=== PATIENT | female | born 1970 | race Caucasian/White ===

== ENCOUNTER 2016-12-15 18:47 | Emergency (ER) | payer MEDICAID ==
[~2016-12-15] VITALS: Ht 160 cm; Wt 81.0 kg
[~2016-12-15 18:47] MED LIST: BENZ2TAB58 PO; CLON.5 PO; DOCU250C76 PO; ESCI10TA PO; LEVE500T53 PO; LEVO25TA4 PO; OLAN15TA5 PO; VALP250S PO
[2016-12-15] MEDS ORDERED: CLOZ25TA4 PO (18:54)
[2016-12-15] MEDS ORDERED: CLOZ100 PO (18:54)
[2016-12-15] MEDS ORDERED: ATOR40TA28 PO (18:54)
[2016-12-15] MEDS ORDERED: LIDOCAINE HCL 1%/EPI 1:100,000 30 ML VIAL INJ ONE (19:30)
[2016-12-15] MEDS ORDERED: LIDOCAINE HCL 1%/EPI 1:200,000/PF 10 ML VIAL INJ ONE (20:00)
[2016-12-15 20:30] VITALS: BP 124/83
[2016-12-15] MEDS ORDERED: BACITRACIN 0.9 GM PACKET OINTMENT TP ONE (20:45)
== END 2016-12-15 21:39 | disposition home or self-care (01) ==
LOC: EMS 18:49
DX: S01.01XA Laceration without foreign body of scalp, initial encounter (principal); E03.9 Hypothyroidism, unspecified; E78.00 Pure hypercholesterolemia, unspecified; F17.210 Nicotine dependence, cigarettes, uncomplicated; W19.XXXA Unspecified fall, initial encounter; Y93.89 Activity, other specified; Y92.89 Other specified places as the place of occurrence of the external cause; Y99.8 Other external cause status
CPT/HCPCS: 12002; 99283; J3490

== ENCOUNTER 2020-08-09 19:51 | Inpatient (IN) | payer MEDICAID ==
[~2020-08-09] VITALS: Ht 162.6 cm; Wt 65.7 kg
[~2020-08-09 19:51] MED LIST changes: +ATOR40TA28 PO; +CLON-592 PO; -CLON.5 PO; +CLOZ100T32 PO; +CLOZ25TA5 PO; +DOCU250C14 PO; -DOCU250C76 PO; -ESCI10TA PO
[2020-08-09 20:45] LABS: BASOPHILS % (AUTO) 0.4 % (0.0-2.0); EOSINOPHILS % (AUTO) 2.5 % (1.0-6.0); HEMATOCRIT 35.7 % (36-46); HEMOGLOBIN 11.5 g/dL (12.0-16.0); LYMPHOCYTES % (AUTO) 30.6 % (22.0-44.0); MEAN CORPUSCULAR HEMOGLOBIN 28.6 pg (26.0-34.0); MEAN CORPUSCULAR HGB CONC 32.2 G/dL (31.0-37.0); MEAN CORPUSCULAR VOLUME 89 fL (80-100); MONOCYTES # (AUTO) 0.6 K/uL (0.1-1.0); MONOCYTES % (AUTO) 6.6 % (2.0-9.0); NEUTROPHILS # (AUTO) 5.9 K/uL (1.8-7.7); NEUTROPHILS % (AUTO) 59.9 % (40.0-70.0); PLATELET COUNT (AUTO) 271 K/uL (150-450); RED BLOOD CELL COUNT(AUTO) 4.02 MIL/uL (4.00-5.20); RED CELL DISTRIBUTION WIDTH 15.4 % (11.5-14.5)
[2020-08-09] MEDS ORDERED: DiphenhydrAMINE HCL 50 MG/ML VIAL IM ONE (20:45)
[2020-08-09] MEDS ORDERED: HALOPERIDOL LACTATE 5 MG/ML VIAL IM ONE (20:45)
[2020-08-09] MEDS ORDERED: LORazepam 2 MG/ML VIAL IM ONE (20:45)
[2020-08-09 20:51] LABS: GLUCOSE,POINT OF CARE 114 MG/DL (70-110)
[2020-08-09 20:56] LABS: ANION GAP 15 mmol/L (8-16); CALCIUM, TOTAL 9.3 mg/dL (8.8-10.5); CARBON DIOXIDE 21 mmol/L (22-29); CHLORIDE 105 mmol/L (98-107); CREATININE 1.01 mg/dL (0.60-1.30); GLOMERULAR FILTR. RATE CALC 59 mL/min (>60); GLUCOSE,RANDOM 131 mg/dL (70-110); POTASSIUM 3.4 mmol/L (3.5-5.1); SODIUM SERUM 141 mmol/L (136-145); UREA NITROGEN, BLOOD 16 mg/dL (7-18)
[2020-08-09 21:07] LABS: ALANINE AMINOTRANSFERASE 24 U/L (12-78); ALBUMIN 3.7 g/dL (3.4-5.0); ALKALINE PHOSPHATASE 93 U/L (46-116); ASPARTATE AMINOTRANSFERASE 20 U/L (15-37); BILIRUBIN,TOTAL 0.4 mg/dL (0.1-1.0); HCG,QUANTITATIVE 1 mIU/mL (0-6); TOTAL PROTEIN, SERUM 7.1 g/dL (6.4-8.2)
[2020-08-09 21:43] LABS: CREATINE KINASE, TOTAL ONLY 342 U/L (26-192)
[2020-08-09 22:42] LABS: COVID AG,FIA SOURCE NASOPHARYNGEAL
[2020-08-09 23:14] LABS: VALPROIC ACID < 3 mcg/mL (50-100)
[2020-08-10] MEDS ORDERED: ONDANSETRON HCL 4 MG TABLET PO PRN (09:00)
[2020-08-10] MEDS ORDERED: NICOTINE 14 MG/24 HOUR PATCH TD PRN (09:00)
[2020-08-10] MEDS ORDERED: MAG HYDROX/AL HYDROX/SIMETH ES 30 ML SUSPENSION UDCUP PO PRN (09:00)
[2020-08-10] MEDS ORDERED: ACETAMINOPHEN 325 MG TABLET PO PRN (09:00)
[2020-08-10] MEDS ORDERED: MAGNESIUM HYDROXIDE SUSPENSION 30 ML UDCUP PO PRN (09:00)
[2020-08-10] MEDS ORDERED: ALBUTEROL SULFATE HFA 90 MCG/PUFF 8 GM INHALER IH PRN (09:00)
[2020-08-10] MEDS ORDERED: IBUPROFEN 400 MG TABLET PO PRN (09:00)
[2020-08-10] MEDS ORDERED: PETROLATUM,WHITE 28 GM JELLY TP PRN (09:00)
[2020-08-10] MEDS ORDERED: LOPERAMIDE HCL 2 MG CAPSULE PO PRN (09:00)
[2020-08-10] MEDS ORDERED: GuaiFENesin/D-METHORPHAN [SUGAR-FREE] 200-20MG/10 ML SYRUP UDCUP PO PRN (09:00)
[2020-08-10] MEDS ORDERED: CloNIDine HCL 0.1 MG TABLET PO PRN (09:00)
[2020-08-10] MEDS: LevETIRAcetam 500 MG TABLET PO SCH ×2 (10:16→21:00)
[2020-08-10] MEDS: DOCUSATE SODIUM 250 MG CAPSULE PO SCH ×3 (10:16→17:11)
[2020-08-10 12:36] VITALS: BP 98/70
[2020-08-10] MEDS: DOCUSATE SODIUM 100 MG CAPSULE PO PRN ×2 (13:11→17:04)
[2020-08-10 16:30] VITALS: BP 134/88
[2020-08-10] MEDS: BACITRACIN 28 GM OINTMENT TP SCH (17:04)
[2020-08-10] MEDS: ATORVASTATIN CALCIUM 40 MG TABLET PO SCH (21:00)
[2020-08-11 06:26] VITALS: BP 126/73
[2020-08-11] MEDS: LEVOTHYROXINE SODIUM 100 MCG TABLET PO SCH (06:29)
[2020-08-11 07:50] LABS: CHOL/HDL RATIO 3.4 (3.9-5.7)
[2020-08-11 08:07] VITALS: BP 104/61
[2020-08-11] MEDS: DOCUSATE SODIUM 250 MG CAPSULE PO SCH ×3 (08:36→16:04)
[2020-08-11] MEDS: LevETIRAcetam 500 MG TABLET PO SCH ×2 (08:36→20:45)
[2020-08-11] MEDS: OLANZapine 5 MG TABLET PO SCH ×2 (08:36→16:04)
[2020-08-11] MEDS: BACITRACIN 28 GM OINTMENT TP SCH ×2 (08:42→16:06)
[2020-08-11 16:23] VITALS: BP 149/60
[2020-08-11] MEDS: ATORVASTATIN CALCIUM 40 MG TABLET PO SCH (20:45)
[2020-08-12] MEDS: LEVOTHYROXINE SODIUM 100 MCG TABLET PO SCH (06:02)
[2020-08-12 06:41] VITALS: BP 133/75
[2020-08-12] MEDS: OLANZapine 5 MG TABLET PO SCH (08:17)
[2020-08-12] MEDS: LORazepam 2 MG TABLET PO PRN ×2 (08:17→13:22)
[2020-08-12] MEDS: DOCUSATE SODIUM 250 MG CAPSULE PO SCH ×3 (08:17→16:31)
[2020-08-12] MEDS: LevETIRAcetam 500 MG TABLET PO SCH ×2 (08:17→20:36)
[2020-08-12 08:18] VITALS: BP 117/67
[2020-08-12] MEDS: BACITRACIN 28 GM OINTMENT TP SCH ×2 (08:18→16:31)
[2020-08-12] MEDS: HALOPERIDOL 5 MG TABLET PO PRN (10:00)
[2020-08-12 16:05] VITALS: BP 112/76
[2020-08-12] MEDS: OLANZapine 10 MG TABLET PO SCH (16:31)
[2020-08-12] MEDS: ATORVASTATIN CALCIUM 40 MG TABLET PO SCH (20:36)
[2020-08-13] MEDS: HALOPERIDOL 5 MG TABLET PO PRN ×2 (03:44→08:35)
[2020-08-13] MEDS: LORazepam 2 MG TABLET PO PRN (03:44)
[2020-08-13 05:33] VITALS: BP 109/71
[2020-08-13] MEDS: LEVOTHYROXINE SODIUM 100 MCG TABLET PO SCH (06:38)
[2020-08-13 08:34] VITALS: BP 121/70
[2020-08-13] MEDS: DOCUSATE SODIUM 100 MG CAPSULE PO PRN (08:34)
[2020-08-13] MEDS: OLANZapine 10 MG TABLET PO SCH ×2 (08:34→16:32)
[2020-08-13] MEDS: LevETIRAcetam 500 MG TABLET PO SCH ×2 (08:35→20:28)
[2020-08-13] MEDS: BACITRACIN 28 GM OINTMENT TP SCH ×2 (08:36→16:36)
[2020-08-13] MEDS: DOCUSATE SODIUM 250 MG CAPSULE PO SCH ×3 (10:00→16:35)
[2020-08-13 16:09] VITALS: BP 117/72
[2020-08-13] MEDS: ATORVASTATIN CALCIUM 40 MG TABLET PO SCH (20:28)
[2020-08-14] MEDS: ZOLPIDEM TARTRATE 10 MG TABLET PO PRN (00:41)
[2020-08-14] MEDS: LORazepam 2 MG TABLET PO PRN ×2 (00:41→08:49)
[2020-08-14 01:53] VITALS: BP 105/62
[2020-08-14] MEDS: LEVOTHYROXINE SODIUM 100 MCG TABLET PO SCH (06:26)
[2020-08-14 07:04] LABS: COVID AG,FIA SOURCE NASOPHARYNGEAL
[2020-08-14 08:09] VITALS: BP 123/74
[2020-08-14] MEDS: LevETIRAcetam 500 MG TABLET PO SCH ×2 (08:38→20:34)
[2020-08-14] MEDS: DOCUSATE SODIUM 250 MG CAPSULE PO SCH ×3 (08:39→17:10)
[2020-08-14] MEDS: HALOPERIDOL 5 MG TABLET PO PRN ×2 (08:39→12:43)
[2020-08-14] MEDS: OLANZapine 10 MG TABLET PO SCH (08:39)
[2020-08-14] MEDS: BACITRACIN 28 GM OINTMENT TP SCH ×2 (09:34→17:10)
[2020-08-14 16:09] VITALS: BP 101/68
[2020-08-14] MEDS: OLANZapine 7.5 MG TABLET PO SCH (17:10)
[2020-08-14] MEDS: ATORVASTATIN CALCIUM 40 MG TABLET PO SCH (20:34)
[2020-08-15] VITALS: BP 81/51
[2020-08-15] MEDS: LEVOTHYROXINE SODIUM 100 MCG TABLET PO SCH (06:15)
[2020-08-15] MEDS: OLANZapine 7.5 MG TABLET PO SCH ×2 (08:18→16:41)
[2020-08-15] MEDS: DOCUSATE SODIUM 250 MG CAPSULE PO SCH ×3 (08:18→16:41)
[2020-08-15] MEDS: LevETIRAcetam 500 MG TABLET PO SCH ×2 (08:18→20:33)
[2020-08-15] MEDS: LORazepam 2 MG TABLET PO PRN (08:18)
[2020-08-15] MEDS: BACITRACIN 28 GM OINTMENT TP SCH ×2 (08:19→16:41)
[2020-08-15 08:39] VITALS: BP 100/60
[2020-08-15 16:19] VITALS: BP 106/71
[2020-08-15] MEDS: ATORVASTATIN CALCIUM 40 MG TABLET PO SCH (20:33)
[2020-08-16 00:19] VITALS: BP 110/72
[2020-08-16] MEDS: LORazepam 2 MG TABLET PO PRN (02:56)
[2020-08-16] MEDS: ZOLPIDEM TARTRATE 10 MG TABLET PO PRN (02:57)
[2020-08-16] MEDS: LEVOTHYROXINE SODIUM 100 MCG TABLET PO SCH (06:30)
[2020-08-16 08:08] VITALS: BP 117/66
[2020-08-16] MEDS: DOCUSATE SODIUM 250 MG CAPSULE PO SCH ×3 (09:06→16:20)
[2020-08-16] MEDS: OLANZapine 7.5 MG TABLET PO SCH ×2 (09:06→16:20)
[2020-08-16] MEDS: LevETIRAcetam 500 MG TABLET PO SCH ×2 (09:06→20:25)
[2020-08-16] MEDS: BACITRACIN 28 GM OINTMENT TP SCH ×2 (09:07→17:05)
[2020-08-16] MEDS: BuPROPion HCL XL 150 MG ER TABLET PO SCH (11:53)
[2020-08-16] MEDS: MULTIVITAMINS WITH MINERALS, THERAPEUTIC TABLET PO SCH (12:05)
[2020-08-16 16:16] VITALS: BP 114/71
[2020-08-16] MEDS: ATORVASTATIN CALCIUM 40 MG TABLET PO SCH (20:25)
[2020-08-17 00:11] VITALS: BP 112/68
[2020-08-17] MEDS: LEVOTHYROXINE SODIUM 100 MCG TABLET PO SCH (06:46)
[2020-08-17 08:11] VITALS: BP 109/67
[2020-08-17] MEDS: LevETIRAcetam 500 MG TABLET PO SCH ×2 (08:26→20:33)
[2020-08-17] MEDS: DOCUSATE SODIUM 250 MG CAPSULE PO SCH ×3 (08:26→18:26)
[2020-08-17] MEDS: BuPROPion HCL XL 150 MG ER TABLET PO SCH (08:26)
[2020-08-17] MEDS: MULTIVITAMINS WITH MINERALS, THERAPEUTIC TABLET PO SCH (08:26)
[2020-08-17] MEDS: OLANZapine 7.5 MG TABLET PO SCH ×2 (08:26→16:36)
[2020-08-17] MEDS: BACITRACIN 28 GM OINTMENT TP SCH ×2 (10:22→16:36)
[2020-08-17] MEDS: HALOPERIDOL 5 MG TABLET PO PRN (11:53)
[2020-08-17] MEDS: LORazepam 2 MG TABLET PO PRN (12:03)
[2020-08-17 16:21] VITALS: BP 110/60
[2020-08-17] MEDS: DOCUSATE SODIUM 100 MG CAPSULE PO PRN (16:36)
[2020-08-17] MEDS: ATORVASTATIN CALCIUM 40 MG TABLET PO SCH ×2 (20:31→20:33)
[2020-08-18 05:01] VITALS: BP 100/51
[2020-08-18] MEDS: LEVOTHYROXINE SODIUM 100 MCG TABLET PO SCH (06:26)
[2020-08-18 08:49] VITALS: BP 139/76
[2020-08-18] MEDS: LevETIRAcetam 500 MG TABLET PO SCH ×2 (08:51→20:30)
[2020-08-18] MEDS: OLANZapine 7.5 MG TABLET PO SCH ×2 (08:51→16:53)
[2020-08-18] MEDS: DOCUSATE SODIUM 250 MG CAPSULE PO SCH ×3 (08:51→16:53)
[2020-08-18] MEDS: BuPROPion HCL XL 150 MG ER TABLET PO SCH (08:51)
[2020-08-18] MEDS: MULTIVITAMINS WITH MINERALS, THERAPEUTIC TABLET PO SCH (08:51)
[2020-08-18] MEDS: BACITRACIN 28 GM OINTMENT TP SCH ×2 (08:53→16:53)
[2020-08-18 16:16] VITALS: BP 103/68
[2020-08-18] MEDS: ATORVASTATIN CALCIUM 40 MG TABLET PO SCH (20:30)
[2020-08-19 06:09] VITALS: BP 103/61
[2020-08-19] MEDS: LEVOTHYROXINE SODIUM 100 MCG TABLET PO SCH (06:48)
[2020-08-19 08:00] VITALS: BP 100/57
[2020-08-19] MEDS: LevETIRAcetam 500 MG TABLET PO SCH ×2 (09:01→20:11)
[2020-08-19] MEDS: BuPROPion HCL XL 150 MG ER TABLET PO SCH (09:01)
[2020-08-19] MEDS: DOCUSATE SODIUM 250 MG CAPSULE PO SCH ×3 (09:01→16:45)
[2020-08-19] MEDS: OLANZapine 7.5 MG TABLET PO SCH ×2 (09:01→16:45)
[2020-08-19] MEDS: MULTIVITAMINS WITH MINERALS, THERAPEUTIC TABLET PO SCH (09:01)
[2020-08-19] MEDS: BACITRACIN 28 GM OINTMENT TP SCH ×2 (09:03→17:07)
[2020-08-19] MEDS: HALOPERIDOL 5 MG TABLET PO PRN ×2 (11:56→16:45)
[2020-08-19] MEDS: LORazepam 2 MG TABLET PO PRN ×2 (11:56→16:45)
[2020-08-19 16:22] VITALS: BP 101/66
[2020-08-19] MEDS: ATORVASTATIN CALCIUM 40 MG TABLET PO SCH (20:11)
[2020-08-20 05:39] VITALS: BP 113/65
[2020-08-20] MEDS: LEVOTHYROXINE SODIUM 100 MCG TABLET PO SCH (06:18)
[2020-08-20 08:00] VITALS: BP 102/72
[2020-08-20] MEDS: BuPROPion HCL XL 150 MG ER TABLET PO SCH (09:13)
[2020-08-20] MEDS: OLANZapine 7.5 MG TABLET PO SCH ×2 (09:13→16:29)
[2020-08-20] MEDS: LevETIRAcetam 500 MG TABLET PO SCH ×2 (09:13→20:18)
[2020-08-20] MEDS: DOCUSATE SODIUM 250 MG CAPSULE PO SCH ×3 (09:13→16:29)
[2020-08-20] MEDS: MULTIVITAMINS WITH MINERALS, THERAPEUTIC TABLET PO SCH (09:13)
[2020-08-20] MEDS: BACITRACIN 28 GM OINTMENT TP SCH (09:14)
[2020-08-20] MEDS: LORazepam 2 MG TABLET PO PRN ×2 (09:20→16:29)
[2020-08-20] MEDS: HALOPERIDOL 5 MG TABLET PO PRN (10:27)
[2020-08-20 16:27] VITALS: BP 114/74
[2020-08-20] MEDS: ATORVASTATIN CALCIUM 40 MG TABLET PO SCH (20:18)
[2020-08-20] MEDS: ZOLPIDEM TARTRATE 10 MG TABLET PO PRN (20:18)
[2020-08-21] MEDS: LEVOTHYROXINE SODIUM 100 MCG TABLET PO SCH (06:12)
[2020-08-21 06:45] VITALS: BP 101/65
[2020-08-21 07:19] LABS: COVID AG,FIA SOURCE NASOPHARYNGEAL
[2020-08-21 08:21] VITALS: BP 111/77
[2020-08-21] MEDS: BuPROPion HCL XL 150 MG ER TABLET PO SCH (08:30)
[2020-08-21] MEDS: OLANZapine 7.5 MG TABLET PO SCH ×2 (08:30→16:35)
[2020-08-21] MEDS: LevETIRAcetam 500 MG TABLET PO SCH ×2 (08:30→20:24)
[2020-08-21] MEDS: MULTIVITAMINS WITH MINERALS, THERAPEUTIC TABLET PO SCH (08:30)
[2020-08-21] MEDS: HALOPERIDOL 5 MG TABLET PO PRN (08:30)
[2020-08-21] MEDS: DOCUSATE SODIUM 250 MG CAPSULE PO SCH ×3 (08:59→16:35)
[2020-08-21 16:10] VITALS: BP 103/70
[2020-08-21] MEDS: LORazepam 2 MG TABLET PO PRN (16:35)
[2020-08-21] MEDS: ATORVASTATIN CALCIUM 40 MG TABLET PO SCH (20:24)
[2020-08-22 06:23] VITALS: BP 126/74
[2020-08-22] MEDS: LEVOTHYROXINE SODIUM 100 MCG TABLET PO SCH (06:29)
[2020-08-22 08:40] VITALS: BP 131/84
[2020-08-22] MEDS: OLANZapine 7.5 MG TABLET PO SCH ×2 (09:28→16:21)
[2020-08-22] MEDS: MULTIVITAMINS WITH MINERALS, THERAPEUTIC TABLET PO SCH (09:28)
[2020-08-22] MEDS: DOCUSATE SODIUM 250 MG CAPSULE PO SCH ×3 (09:28→16:21)
[2020-08-22] MEDS: LevETIRAcetam 500 MG TABLET PO SCH ×2 (09:28→20:44)
[2020-08-22] MEDS: BuPROPion HCL XL 150 MG ER TABLET PO SCH (09:28)
[2020-08-22] MEDS: LORazepam 2 MG TABLET PO PRN (12:14)
[2020-08-22] MEDS: HALOPERIDOL 5 MG TABLET PO PRN (12:14)
[2020-08-22 16:23] VITALS: BP 98/61
[2020-08-22] MEDS: ATORVASTATIN CALCIUM 40 MG TABLET PO SCH (20:44)
[2020-08-23 06:21] VITALS: BP 106/73
[2020-08-23] MEDS: LEVOTHYROXINE SODIUM 100 MCG TABLET PO SCH (06:43)
[2020-08-23] MEDS: BuPROPion HCL XL 150 MG ER TABLET PO SCH (08:46)
[2020-08-23] MEDS: MULTIVITAMINS WITH MINERALS, THERAPEUTIC TABLET PO SCH (08:46)
[2020-08-23] MEDS: DOCUSATE SODIUM 250 MG CAPSULE PO SCH ×3 (08:47→15:28)
[2020-08-23] MEDS: LevETIRAcetam 500 MG TABLET PO SCH ×2 (08:47→20:27)
[2020-08-23] MEDS: OLANZapine 7.5 MG TABLET PO SCH ×2 (08:47→15:29)
[2020-08-23 08:50] VITALS: BP 110/69
[2020-08-23] MEDS: HALOPERIDOL 5 MG TABLET PO PRN ×2 (10:01→15:28)
[2020-08-23] MEDS: LORazepam 2 MG TABLET PO PRN ×3 (10:02→21:15)
[2020-08-23 16:23] VITALS: BP 117/70
[2020-08-23] MEDS: ATORVASTATIN CALCIUM 40 MG TABLET PO SCH (20:27)
[2020-08-24 01:01] VITALS: BP 103/62
[2020-08-24] MEDS: LEVOTHYROXINE SODIUM 100 MCG TABLET PO SCH (06:54)
[2020-08-24] MEDS: LevETIRAcetam 500 MG TABLET PO SCH ×2 (08:36→20:20)
[2020-08-24] MEDS: BuPROPion HCL XL 150 MG ER TABLET PO SCH (08:36)
[2020-08-24] MEDS: MULTIVITAMINS WITH MINERALS, THERAPEUTIC TABLET PO SCH (08:36)
[2020-08-24] MEDS: OLANZapine 7.5 MG TABLET PO SCH ×2 (08:36→16:16)
[2020-08-24] MEDS: DOCUSATE SODIUM 250 MG CAPSULE PO SCH ×3 (08:36→16:16)
[2020-08-24] MEDS: HALOPERIDOL 5 MG TABLET PO PRN ×2 (08:57→16:16)
[2020-08-24 09:15] VITALS: BP 104/68
[2020-08-24] MEDS: LORazepam 2 MG TABLET PO PRN (16:19)
[2020-08-24 16:29] VITALS: BP 106/68
[2020-08-24] MEDS: ATORVASTATIN CALCIUM 40 MG TABLET PO SCH (20:20)
[2020-08-25 05:58] VITALS: BP 102/68
[2020-08-25] MEDS: LEVOTHYROXINE SODIUM 100 MCG TABLET PO SCH (06:23)
[2020-08-25] MEDS: DOCUSATE SODIUM 250 MG CAPSULE PO SCH ×3 (09:30→16:26)
[2020-08-25] MEDS: OLANZapine 7.5 MG TABLET PO SCH ×2 (09:30→16:26)
[2020-08-25] MEDS: LevETIRAcetam 500 MG TABLET PO SCH ×2 (09:30→20:29)
[2020-08-25] MEDS: MULTIVITAMINS WITH MINERALS, THERAPEUTIC TABLET PO SCH (09:30)
[2020-08-25] MEDS: BuPROPion HCL XL 150 MG ER TABLET PO SCH (09:30)
[2020-08-25 09:36] VITALS: BP 108/70
[2020-08-25 16:13] VITALS: BP 119/64
[2020-08-25] MEDS: HALOPERIDOL 5 MG TABLET PO PRN ×2 (16:26→16:34)
[2020-08-25] MEDS: ATORVASTATIN CALCIUM 40 MG TABLET PO SCH (20:29)
[2020-08-25] MEDS: LORazepam 2 MG TABLET PO PRN (20:39)
[2020-08-26 06:11] VITALS: BP 100/61
[2020-08-26] MEDS: LEVOTHYROXINE SODIUM 100 MCG TABLET PO SCH (06:25)
[2020-08-26 07:56] LABS: COVID AG,FIA SOURCE NASOPHARYNGEAL
[2020-08-26] MEDS: MULTIVITAMINS WITH MINERALS, THERAPEUTIC TABLET PO SCH (08:15)
[2020-08-26] MEDS: LORazepam 2 MG TABLET PO PRN (08:16)
[2020-08-26] MEDS: BuPROPion HCL XL 150 MG ER TABLET PO SCH (08:16)
[2020-08-26] MEDS: OLANZapine 7.5 MG TABLET PO SCH ×2 (08:16→17:03)
[2020-08-26] MEDS: DOCUSATE SODIUM 100 MG CAPSULE PO PRN ×3 (08:16→17:03)
[2020-08-26 09:02] VITALS: BP 106/55
[2020-08-26] MEDS: LevETIRAcetam 500 MG TABLET PO SCH ×2 (09:19→20:22)
[2020-08-26] MEDS: DOCUSATE SODIUM 250 MG CAPSULE PO SCH ×3 (09:20→17:00)
[2020-08-26 16:22] VITALS: BP 101/75
[2020-08-26] MEDS: ATORVASTATIN CALCIUM 40 MG TABLET PO SCH (20:22)
[2020-08-27 00:35] VITALS: BP 105/66
[2020-08-27] MEDS: LEVOTHYROXINE SODIUM 100 MCG TABLET PO SCH (06:46)
[2020-08-27] MEDS: LORazepam 2 MG TABLET PO PRN ×2 (08:31→16:06)
[2020-08-27] MEDS: DOCUSATE SODIUM 250 MG CAPSULE PO SCH ×3 (08:31→16:06)
[2020-08-27] MEDS: OLANZapine 7.5 MG TABLET PO SCH ×2 (08:31→16:06)
[2020-08-27] MEDS: BuPROPion HCL XL 150 MG ER TABLET PO SCH (08:31)
[2020-08-27] MEDS: MULTIVITAMINS WITH MINERALS, THERAPEUTIC TABLET PO SCH (08:31)
[2020-08-27] MEDS: HALOPERIDOL 5 MG TABLET PO PRN (08:31)
[2020-08-27] MEDS: LevETIRAcetam 500 MG TABLET PO SCH ×2 (08:31→21:49)
[2020-08-27 09:04] VITALS: BP 117/80
[2020-08-27] MEDS ORDERED: HALOPERIDOL LACTATE 5 MG/ML VIAL IM ONE (10:15)
[2020-08-27] MEDS ORDERED: LORazepam 2 MG/ML VIAL IM ONE (10:15)
[2020-08-27] MEDS ORDERED: DiphenhydrAMINE HCL 50 MG/ML VIAL IM ONE (10:15)
[2020-08-27 12:53] VITALS: BP 110/70
[2020-08-27 16:11] LABS: GLUCOMETER DEV NAME(LOC) BV2S.; GLUCOSE,POINT OF CARE 105 MG/DL (70-110)
[2020-08-27 16:26] VITALS: BP 102/67
[2020-08-27] MEDS: ATORVASTATIN CALCIUM 40 MG TABLET PO SCH (21:49)
[2020-08-28 00:30] VITALS: BP 110/75
[2020-08-28] MEDS: LEVOTHYROXINE SODIUM 100 MCG TABLET PO SCH (06:52)
[2020-08-28 08:26] VITALS: BP 108/69
[2020-08-28] MEDS: LevETIRAcetam 500 MG TABLET PO SCH ×2 (08:29→20:35)
[2020-08-28] MEDS: BuPROPion HCL XL 150 MG ER TABLET PO SCH (08:29)
[2020-08-28] MEDS: DOCUSATE SODIUM 100 MG CAPSULE PO PRN (08:29)
[2020-08-28] MEDS: OLANZapine 7.5 MG TABLET PO SCH ×2 (08:29→08:31)
[2020-08-28] MEDS: MULTIVITAMINS WITH MINERALS, THERAPEUTIC TABLET PO SCH (08:29)
[2020-08-28] MEDS: DOCUSATE SODIUM 250 MG CAPSULE PO SCH (08:31)
[2020-08-28] MEDS: HALOPERIDOL 5 MG TABLET PO PRN (12:46)
[2020-08-28] MEDS: LORazepam 2 MG TABLET PO PRN (12:46)
[2020-08-28 16:29] VITALS: BP 101/61
[2020-08-28] MEDS: ATORVASTATIN CALCIUM 40 MG TABLET PO SCH (20:35)
[2020-08-29 01:55] VITALS: BP 103/60
[2020-08-29] MEDS: LORazepam 2 MG TABLET PO PRN ×2 (02:00→08:47)
[2020-08-29] MEDS: HALOPERIDOL 5 MG TABLET PO PRN (02:00)
[2020-08-29] MEDS: LEVOTHYROXINE SODIUM 100 MCG TABLET PO SCH (06:22)
[2020-08-29] MEDS: LevETIRAcetam 500 MG TABLET PO SCH ×2 (08:47→20:08)
[2020-08-29] MEDS: MULTIVITAMINS WITH MINERALS, THERAPEUTIC TABLET PO SCH (08:47)
[2020-08-29] MEDS: BuPROPion HCL XL 150 MG ER TABLET PO SCH (08:47)
[2020-08-29] MEDS: OLANZapine 7.5 MG TABLET PO SCH ×2 (08:47→17:13)
[2020-08-29 09:33] VITALS: BP 104/70
[2020-08-29 16:21] VITALS: BP 102/64
[2020-08-29] MEDS: ATORVASTATIN CALCIUM 40 MG TABLET PO SCH (20:08)
[2020-08-30] MEDS: HALOPERIDOL 5 MG TABLET PO PRN (00:08)
[2020-08-30] MEDS: LORazepam 2 MG TABLET PO PRN ×2 (00:08→15:09)
[2020-08-30 00:46] VITALS: BP 103/62
[2020-08-30] MEDS: LEVOTHYROXINE SODIUM 100 MCG TABLET PO SCH (06:23)
[2020-08-30 08:15] VITALS: BP 110/61
[2020-08-30] MEDS: LevETIRAcetam 500 MG TABLET PO SCH ×2 (08:21→20:34)
[2020-08-30] MEDS: MULTIVITAMINS WITH MINERALS, THERAPEUTIC TABLET PO SCH (08:21)
[2020-08-30] MEDS: OLANZapine 7.5 MG TABLET PO SCH ×2 (08:21→16:42)
[2020-08-30] MEDS: BuPROPion HCL XL 150 MG ER TABLET PO SCH (08:21)
[2020-08-30 16:24] VITALS: BP 114/64
[2020-08-30] MEDS: ATORVASTATIN CALCIUM 40 MG TABLET PO SCH (20:34)
[2020-08-31] MEDS: LEVOTHYROXINE SODIUM 100 MCG TABLET PO SCH (06:21)
[2020-08-31 06:23] VITALS: BP 103/62
[2020-08-31 08:13] VITALS: BP 114/78
[2020-08-31] MEDS: OLANZapine 7.5 MG TABLET PO SCH ×2 (09:17→16:29)
[2020-08-31] MEDS: BuPROPion HCL XL 150 MG ER TABLET PO SCH (09:17)
[2020-08-31] MEDS: LevETIRAcetam 500 MG TABLET PO SCH ×2 (09:17→20:22)
[2020-08-31] MEDS: LORazepam 2 MG TABLET PO PRN (09:18)
[2020-08-31] MEDS: HALOPERIDOL 5 MG TABLET PO PRN (09:18)
[2020-08-31] MEDS: MULTIVITAMINS WITH MINERALS, THERAPEUTIC TABLET PO SCH (09:18)
[2020-08-31 16:30] VITALS: BP 100/61
[2020-08-31] MEDS: ATORVASTATIN CALCIUM 40 MG TABLET PO SCH (20:22)
[2020-09-01 05:19] VITALS: BP 95/60
[2020-09-01] MEDS: LEVOTHYROXINE SODIUM 100 MCG TABLET PO SCH (06:22)
[2020-09-01 08:34] VITALS: BP 106/65
[2020-09-01] MEDS: LORazepam 2 MG TABLET PO PRN ×3 (08:54→20:19)
[2020-09-01] MEDS: MULTIVITAMINS WITH MINERALS, THERAPEUTIC TABLET PO SCH (08:54)
[2020-09-01] MEDS: BuPROPion HCL XL 150 MG ER TABLET PO SCH (08:54)
[2020-09-01] MEDS: LevETIRAcetam 500 MG TABLET PO SCH ×2 (08:54→20:19)
[2020-09-01] MEDS: OLANZapine 7.5 MG TABLET PO SCH ×2 (08:54→16:48)
[2020-09-01] MEDS: HALOPERIDOL 5 MG TABLET PO PRN (10:53)
[2020-09-01 16:14] VITALS: BP 108/66
[2020-09-01] MEDS: ATORVASTATIN CALCIUM 40 MG TABLET PO SCH (20:19)
[2020-09-02 00:27] VITALS: BP 110/77
[2020-09-02] MEDS: LORazepam 2 MG TABLET PO PRN ×3 (00:27→16:35)
[2020-09-02] MEDS: HALOPERIDOL 5 MG TABLET PO PRN ×2 (00:27→06:40)
[2020-09-02] MEDS: LEVOTHYROXINE SODIUM 100 MCG TABLET PO SCH (06:28)
[2020-09-02 08:25] VITALS: BP 101/66
[2020-09-02] MEDS: MULTIVITAMINS WITH MINERALS, THERAPEUTIC TABLET PO SCH (09:22)
[2020-09-02] MEDS: OLANZapine 7.5 MG TABLET PO SCH ×2 (09:22→16:35)
[2020-09-02] MEDS: LevETIRAcetam 500 MG TABLET PO SCH ×2 (09:22→20:09)
[2020-09-02] MEDS: BuPROPion HCL XL 150 MG ER TABLET PO SCH (09:22)
[2020-09-02 16:12] VITALS: BP 119/72
[2020-09-02] MEDS: ATORVASTATIN CALCIUM 40 MG TABLET PO SCH (20:09)
[2020-09-03 05:48] VITALS: BP 100/57
[2020-09-03] MEDS: LEVOTHYROXINE SODIUM 100 MCG TABLET PO SCH (06:23)
[2020-09-03 08:06] LABS: COVID AG,FIA SOURCE NASOPHARYNGEAL
[2020-09-03] MEDS: MULTIVITAMINS WITH MINERALS, THERAPEUTIC TABLET PO SCH (08:28)
[2020-09-03] MEDS: LORazepam 2 MG TABLET PO PRN ×2 (08:28→14:25)
[2020-09-03] MEDS: BuPROPion HCL XL 150 MG ER TABLET PO SCH (08:28)
[2020-09-03] MEDS: OLANZapine 7.5 MG TABLET PO SCH ×2 (08:28→16:10)
[2020-09-03] MEDS: LevETIRAcetam 500 MG TABLET PO SCH ×2 (09:10→20:26)
[2020-09-03 09:21] VITALS: BP 108/64
[2020-09-03] MEDS: HALOPERIDOL 5 MG TABLET PO PRN (16:15)
[2020-09-03 16:29] VITALS: BP 112/68
[2020-09-03] MEDS: ATORVASTATIN CALCIUM 40 MG TABLET PO SCH (20:25)
[2020-09-04] MEDS: LORazepam 2 MG TABLET PO PRN ×4 (01:18→21:29)
[2020-09-04] MEDS: HALOPERIDOL 5 MG TABLET PO PRN ×4 (01:19→21:29)
[2020-09-04 04:43] VITALS: BP 116/65
[2020-09-04] MEDS: LEVOTHYROXINE SODIUM 100 MCG TABLET PO SCH (06:23)
[2020-09-04 08:16] VITALS: BP 100/60
[2020-09-04] MEDS: BuPROPion HCL XL 150 MG ER TABLET PO SCH (09:26)
[2020-09-04] MEDS: LevETIRAcetam 500 MG TABLET PO SCH ×2 (09:26→20:18)
[2020-09-04] MEDS: MULTIVITAMINS WITH MINERALS, THERAPEUTIC TABLET PO SCH (09:26)
[2020-09-04] MEDS: OLANZapine 7.5 MG TABLET PO SCH ×2 (09:27→16:12)
[2020-09-04] MEDS: MEGESTROL ACETATE 400 MG/10 ML SUSPENSION UDCUP PO SCH (16:11)
[2020-09-04 16:34] VITALS: BP 112/65
[2020-09-04] MEDS: ATORVASTATIN CALCIUM 40 MG TABLET PO SCH (20:18)
[2020-09-05 04:48] VITALS: BP 110/63
[2020-09-05] MEDS: LEVOTHYROXINE SODIUM 100 MCG TABLET PO SCH (06:44)
[2020-09-05 07:35] LABS: MAGNESIUM 1.8 mg/dL (1.80-2.40); PHOSPHORUS 4.1 mg/dL (2.5-4.9); POTASSIUM 3.9 mmol/L (3.5-5.1)
[2020-09-05 08:11] VITALS: BP 105/67
[2020-09-05] MEDS: BuPROPion HCL XL 150 MG ER TABLET PO SCH (08:58)
[2020-09-05] MEDS: MULTIVITAMINS WITH MINERALS, THERAPEUTIC TABLET PO SCH (08:58)
[2020-09-05] MEDS: OLANZapine 7.5 MG TABLET PO SCH ×2 (08:58→15:38)
[2020-09-05] MEDS: LevETIRAcetam 500 MG TABLET PO SCH ×2 (08:58→19:50)
[2020-09-05] MEDS: MEGESTROL ACETATE 400 MG/10 ML SUSPENSION UDCUP PO SCH ×2 (08:58→16:08)
[2020-09-05] MEDS: LORazepam 2 MG TABLET PO PRN (09:41)
[2020-09-05] MEDS: HALOPERIDOL 5 MG TABLET PO PRN ×2 (09:41→15:38)
[2020-09-05 16:09] VITALS: BP 107/61
[2020-09-05] MEDS: ATORVASTATIN CALCIUM 40 MG TABLET PO SCH (19:50)
[2020-09-06 00:39] VITALS: BP 102/54
[2020-09-06] MEDS: LEVOTHYROXINE SODIUM 100 MCG TABLET PO SCH (06:24)
[2020-09-06 08:15] VITALS: BP 100/84
[2020-09-06] MEDS: LevETIRAcetam 500 MG TABLET PO SCH ×2 (08:44→20:25)
[2020-09-06] MEDS: MULTIVITAMINS WITH MINERALS, THERAPEUTIC TABLET PO SCH (08:44)
[2020-09-06] MEDS: OLANZapine 7.5 MG TABLET PO SCH ×2 (08:44→16:04)
[2020-09-06] MEDS: BuPROPion HCL XL 150 MG ER TABLET PO SCH (08:44)
[2020-09-06] MEDS: MEGESTROL ACETATE 400 MG/10 ML SUSPENSION UDCUP PO SCH ×2 (08:45→16:04)
[2020-09-06] MEDS: LORazepam 2 MG TABLET PO PRN (13:15)
[2020-09-06 16:09] VITALS: BP 115/83
[2020-09-06] MEDS: ATORVASTATIN CALCIUM 40 MG TABLET PO SCH (20:25)
[2020-09-07 00:16] VITALS: BP 110/65
[2020-09-07] MEDS: LEVOTHYROXINE SODIUM 100 MCG TABLET PO SCH (06:28)
[2020-09-07 08:25] VITALS: BP 127/83
[2020-09-07] MEDS: LevETIRAcetam 500 MG TABLET PO SCH ×2 (08:28→20:19)
[2020-09-07] MEDS: BuPROPion HCL XL 150 MG ER TABLET PO SCH (08:28)
[2020-09-07] MEDS: OLANZapine 7.5 MG TABLET PO SCH ×2 (08:28→16:43)
[2020-09-07] MEDS: MULTIVITAMINS WITH MINERALS, THERAPEUTIC TABLET PO SCH (08:28)
[2020-09-07] MEDS: MEGESTROL ACETATE 400 MG/10 ML SUSPENSION UDCUP PO SCH ×2 (08:29→16:43)
[2020-09-07] MEDS: LORazepam 2 MG TABLET PO PRN (08:42)
[2020-09-07 16:32] VITALS: BP 114/69
[2020-09-07] MEDS: HALOPERIDOL 5 MG TABLET PO PRN (17:36)
[2020-09-07] MEDS: ATORVASTATIN CALCIUM 40 MG TABLET PO SCH (20:19)
[2020-09-08 03:46] VITALS: BP 109/68
[2020-09-08] MEDS: LEVOTHYROXINE SODIUM 100 MCG TABLET PO SCH (06:13)
[2020-09-08 08:38] VITALS: BP 141/97
[2020-09-08] MEDS: MEGESTROL ACETATE 400 MG/10 ML SUSPENSION UDCUP PO SCH ×2 (08:53→16:24)
[2020-09-08] MEDS: LevETIRAcetam 500 MG TABLET PO SCH ×2 (08:53→20:14)
[2020-09-08] MEDS: OLANZapine 7.5 MG TABLET PO SCH ×2 (08:53→16:26)
[2020-09-08] MEDS: MULTIVITAMINS WITH MINERALS, THERAPEUTIC TABLET PO SCH (08:53)
[2020-09-08] MEDS: BuPROPion HCL XL 150 MG ER TABLET PO SCH (08:53)
[2020-09-08] MEDS: LORazepam 2 MG TABLET PO PRN ×2 (08:53→16:27)
[2020-09-08 16:14] VITALS: BP 122/69
[2020-09-08] MEDS: ATORVASTATIN CALCIUM 40 MG TABLET PO SCH (20:14)
[2020-09-09 00:40] VITALS: BP 119/63
[2020-09-09] MEDS: LEVOTHYROXINE SODIUM 100 MCG TABLET PO SCH (06:34)
[2020-09-09] MEDS: LevETIRAcetam 500 MG TABLET PO SCH ×2 (08:19→20:01)
[2020-09-09] MEDS: OLANZapine 7.5 MG TABLET PO SCH ×2 (08:19→17:05)
[2020-09-09] MEDS: MULTIVITAMINS WITH MINERALS, THERAPEUTIC TABLET PO SCH (08:19)
[2020-09-09] MEDS: LORazepam 2 MG TABLET PO PRN ×2 (08:20→17:12)
[2020-09-09] MEDS: MEGESTROL ACETATE 400 MG/10 ML SUSPENSION UDCUP PO SCH ×2 (08:20→17:06)
[2020-09-09] MEDS: BuPROPion HCL XL 150 MG ER TABLET PO SCH (08:20)
[2020-09-09 08:32] VITALS: BP 113/60
[2020-09-09 16:08] VITALS: BP 126/79
[2020-09-09] MEDS: ATORVASTATIN CALCIUM 40 MG TABLET PO SCH (20:01)
[2020-09-10 00:41] VITALS: BP 121/72
[2020-09-10] MEDS: LEVOTHYROXINE SODIUM 100 MCG TABLET PO SCH (06:36)
[2020-09-10 07:09] LABS: COVID AG,FIA SOURCE NASOPHARYNGEAL
[2020-09-10 08:09] VITALS: BP 109/63
[2020-09-10] MEDS: OLANZapine 7.5 MG TABLET PO SCH ×2 (08:22→17:03)
[2020-09-10] MEDS: LORazepam 2 MG TABLET PO PRN (08:22)
[2020-09-10] MEDS: LevETIRAcetam 500 MG TABLET PO SCH ×2 (08:22→20:08)
[2020-09-10] MEDS: MEGESTROL ACETATE 400 MG/10 ML SUSPENSION UDCUP PO SCH ×2 (08:22→17:04)
[2020-09-10] MEDS: MULTIVITAMINS WITH MINERALS, THERAPEUTIC TABLET PO SCH (08:22)
[2020-09-10] MEDS: BuPROPion HCL XL 150 MG ER TABLET PO SCH (08:22)
[2020-09-10 16:11] VITALS: BP 124/75
[2020-09-10] MEDS: ATORVASTATIN CALCIUM 40 MG TABLET PO SCH (20:08)
[2020-09-11 00:16] VITALS: BP 100/65
[2020-09-11] MEDS: LEVOTHYROXINE SODIUM 100 MCG TABLET PO SCH (06:15)
[2020-09-11] MEDS: LevETIRAcetam 500 MG TABLET PO SCH ×2 (08:10→20:16)
[2020-09-11] MEDS: LORazepam 2 MG TABLET PO PRN (08:11)
[2020-09-11] MEDS: MULTIVITAMINS WITH MINERALS, THERAPEUTIC TABLET PO SCH (08:11)
[2020-09-11] MEDS: OLANZapine 7.5 MG TABLET PO SCH ×2 (08:11→16:23)
[2020-09-11] MEDS: BuPROPion HCL XL 150 MG ER TABLET PO SCH (08:12)
[2020-09-11] MEDS: MEGESTROL ACETATE 400 MG/10 ML SUSPENSION UDCUP PO SCH ×2 (08:12→16:23)
[2020-09-11 08:20] VITALS: BP 121/61
[2020-09-11] MEDS ORDERED: BUPR-93 PO (11:20)
[2020-09-11] MEDS ORDERED: OLAN7.5T2 PO (11:20)
[2020-09-11] MEDS: HALOPERIDOL 5 MG TABLET PO PRN (16:33)
[2020-09-11 16:35] VITALS: BP 106/61
[2020-09-11] MEDS: ATORVASTATIN CALCIUM 40 MG TABLET PO SCH (20:16)
[2020-09-12 04:25] VITALS: BP 136/79
[2020-09-12] MEDS: LORazepam 2 MG TABLET PO PRN ×2 (04:55→08:59)
[2020-09-12] MEDS: HALOPERIDOL 5 MG TABLET PO PRN ×2 (04:55→08:59)
[2020-09-12] MEDS: LEVOTHYROXINE SODIUM 100 MCG TABLET PO SCH (06:39)
[2020-09-12 08:21] VITALS: BP 128/76
[2020-09-12] MEDS: OLANZapine 7.5 MG TABLET PO SCH (08:39)
[2020-09-12] MEDS: LevETIRAcetam 500 MG TABLET PO SCH (08:39)
[2020-09-12] MEDS: MEGESTROL ACETATE 400 MG/10 ML SUSPENSION UDCUP PO SCH (08:40)
[2020-09-12] MEDS: BuPROPion HCL XL 150 MG ER TABLET PO SCH (08:40)
[2020-09-12] MEDS: MULTIVITAMINS WITH MINERALS, THERAPEUTIC TABLET PO SCH (08:40)
== END 2020-09-12 13:17 | disposition home or self-care (01) | DRG 750 ==
LOC: EMS 20:03 → B3A 22:00 → B2S 08-10 10:26
PROVIDERS: ADMIT Psychiatry & Neurology Psychiatry; ATTEND Psychiatry & Neurology Psychiatry
DX: F20.0 Paranoid schizophrenia (principal); R45.851 Suicidal ideations; Z78.1 Physical restraint status; G40.909 Epilepsy, unspecified, not intractable, without status epilepticus; D64.9 Anemia, unspecified; E03.9 Hypothyroidism, unspecified; Z20.822 Contact with and (suspected) exposure to COVID-19; E78.00 Pure hypercholesterolemia, unspecified; E78.5 Hyperlipidemia, unspecified; E87.6 Hypokalemia; F17.210 Nicotine dependence, cigarettes, uncomplicated; Z79.899 Other long term (current) drug therapy
CPT/HCPCS: 80053; 80061; 80164; 82550; 82962; 83735; 84100; 84132; 84702; 85025; 87081; 87426; 99285; G0480; J1200; J1630; J2060

== ENCOUNTER 2020-10-12 12:08 | Inpatient (IN) | payer MEDICAID ==
[~2020-10-12] VITALS: Ht 162.6 cm; Wt 63.6 kg
[~2020-10-12 12:08] MED LIST changes: -BENZ2TAB58 PO; +BUPR-93 PO; -CLON-592 PO; -CLOZ100T32 PO; -CLOZ25TA5 PO; -DOCU250C14 PO; -OLAN15TA5 PO; +OLAN7.5T22 PO; -VALP250S PO
[2020-10-12 18:18] LABS: COVID AG,FIA SOURCE NASAL SWAB
[2020-10-12 19:21] VITALS: BP 108/78
[2020-10-12] MEDS: LORazepam 2 MG TABLET PO PRN (21:05)
[2020-10-12] MEDS: HALOPERIDOL 5 MG TABLET PO PRN (21:05)
[2020-10-13 04:42] VITALS: BP 106/76
[2020-10-13 08:08] LABS: BASOPHILS % (AUTO) 0.4 % (0.0-2.0); EOSINOPHILS % (AUTO) 4.6 % (1.0-6.0); HEMATOCRIT 39.2 % (36-46); HEMOGLOBIN 12.7 g/dL (12.0-16.0); LYMPHOCYTES # (AUTO) 2.4 K/uL (1.0-4.8); LYMPHOCYTES % (AUTO) 28.9 % (22.0-44.0); MEAN CORPUSCULAR HEMOGLOBIN 28.7 pg (26.0-34.0); MEAN CORPUSCULAR HGB CONC 32.4 G/dL (31.0-37.0); MEAN CORPUSCULAR VOLUME 89 fL (80-100); MONOCYTES # (AUTO) 0.6 K/uL (0.1-1.0); NEUTROPHILS # (AUTO) 4.9 K/uL (1.8-7.7); NEUTROPHILS % (AUTO) 59.1 % (40.0-70.0); PLATELET COUNT (AUTO) 284 K/uL (150-450); RED BLOOD CELL COUNT(AUTO) 4.43 MIL/uL (4.00-5.20); RED CELL DISTRIBUTION WIDTH 16.1 % (11.5-14.5)
[2020-10-13 08:12] LABS: HEMOGLOBIN A1C 5.2 % (3.8-5.6)
[2020-10-13 08:55] LABS: ALANINE AMINOTRANSFERASE 22 U/L (12-78); ALBUMIN 3.3 g/dL (3.4-5.0); ALKALINE PHOSPHATASE 91 U/L (46-116); ANION GAP 11 mmol/L (8-16); ASPARTATE AMINOTRANSFERASE 17 U/L (15-37); BILIRUBIN,TOTAL 0.4 mg/dL (0.1-1.0); CARBON DIOXIDE 21 mmol/L (22-29); CHLORIDE 109 mmol/L (98-107); CHOLESTEROL 112 mg/dL (131-200); CREATININE 0.67 mg/dL (0.60-1.30); GLOMERULAR FILTR. RATE CALC > 60 mL/min (>60); GLUCOSE,RANDOM 79 mg/dL (70-110); HDL CHOLESTEROL 28 mg/dL (40-60); LDL CHOL (CALC.) 69 mg/dL (0-130); POTASSIUM 4.1 mmol/L (3.5-5.1); SODIUM SERUM 141 mmol/L (136-145); THYROID STIMULATING HORMONE 2.03 uIU/mL (0.36-3.74); TOTAL PROTEIN, SERUM 6.7 g/dL (6.4-8.2); TRIGLYCERIDES 75 mg/dL (15-150); UREA NITROGEN, BLOOD 9 mg/dL (7-18)
[2020-10-13] MEDS: BuPROPion HCL XL 150 MG ER TABLET PO SCH (10:30)
[2020-10-13] MEDS: OLANZapine 5 MG TABLET PO SCH ×2 (10:30→17:11)
[2020-10-13] MEDS: CloZAPine 25 MG TABLET PO SCH ×2 (10:30→20:06)
[2020-10-13] MEDS: LORazepam 2 MG TABLET PO PRN (10:31)
[2020-10-13 16:13] VITALS: BP 100/65
[2020-10-14 00:48] VITALS: BP 109/74
[2020-10-14 08:25] VITALS: BP 120/75
[2020-10-14] MEDS: OLANZapine 5 MG TABLET PO SCH ×2 (09:22→16:01)
[2020-10-14] MEDS: LORazepam 2 MG TABLET PO PRN (09:22)
[2020-10-14] MEDS: BuPROPion HCL XL 150 MG ER TABLET PO SCH (09:22)
[2020-10-14] MEDS: CloZAPine 25 MG TABLET PO SCH (09:22)
[2020-10-14 16:04] VITALS: BP 118/74
[2020-10-14] MEDS: CloZAPine 100 MG TABLET PO SCH (19:52)
[2020-10-15 06:06] VITALS: BP 110/71
[2020-10-15 07:51] LABS: BASOPHILS % (AUTO) 0.4 % (0.0-2.0); EOSINOPHILS % (AUTO) 3.2 % (1.0-6.0); HEMATOCRIT 38.3 % (36-46); HEMOGLOBIN 12.4 g/dL (12.0-16.0); LYMPHOCYTES # (AUTO) 2.6 K/uL (1.0-4.8); LYMPHOCYTES % (AUTO) 30.4 % (22.0-44.0); MEAN CORPUSCULAR HEMOGLOBIN 28.7 pg (26.0-34.0); MEAN CORPUSCULAR HGB CONC 32.5 G/dL (31.0-37.0); MEAN CORPUSCULAR VOLUME 89 fL (80-100); MONOCYTES # (AUTO) 0.5 K/uL (0.1-1.0); MONOCYTES % (AUTO) 6.5 % (2.0-9.0); NEUTROPHILS % (AUTO) 59.5 % (40.0-70.0); PLATELET COUNT (AUTO) 251 K/uL (150-450); RED BLOOD CELL COUNT(AUTO) 4.32 MIL/uL (4.00-5.20); RED CELL DISTRIBUTION WIDTH 16.2 % (11.5-14.5)
[2020-10-15] MEDS: CloZAPine 25 MG TABLET PO SCH (08:22)
[2020-10-15] MEDS: LORazepam 2 MG TABLET PO PRN ×2 (08:22→16:11)
[2020-10-15] MEDS: OLANZapine 5 MG TABLET PO SCH ×2 (08:22→16:11)
[2020-10-15] MEDS: BuPROPion HCL XL 150 MG ER TABLET PO SCH (08:22)
[2020-10-15 10:00] VITALS: BP 123/88
[2020-10-15 16:18] VITALS: BP 125/79
[2020-10-15] MEDS: CloZAPine 100 MG TABLET PO SCH (19:57)
[2020-10-16 04:37] VITALS: BP 116/70
[2020-10-16 08:12] VITALS: BP 101/64
[2020-10-16] MEDS: OLANZapine 5 MG TABLET PO SCH ×2 (08:47→16:06)
[2020-10-16] MEDS: CloZAPine 25 MG TABLET PO SCH (08:47)
[2020-10-16] MEDS: BuPROPion HCL XL 150 MG ER TABLET PO SCH (08:47)
[2020-10-16 12:30] VITALS: BP 109/77
[2020-10-16] MEDS: LORazepam 2 MG TABLET PO PRN (12:51)
[2020-10-16 16:04] VITALS: BP 121/84
[2020-10-16] MEDS: CloZAPine 100 MG TABLET PO SCH (19:12)
[2020-10-17 02:25] VITALS: BP 99/66
[2020-10-17 08:04] VITALS: BP 106/68
[2020-10-17] MEDS: OLANZapine 5 MG TABLET PO SCH ×2 (09:12→16:12)
[2020-10-17] MEDS: BuPROPion HCL XL 150 MG ER TABLET PO SCH (09:12)
[2020-10-17] MEDS: CloZAPine 25 MG TABLET PO SCH (09:14)
[2020-10-17 16:04] VITALS: BP 119/78
[2020-10-17] MEDS: CloZAPine 100 MG TABLET PO SCH (19:09)
[2020-10-17] MEDS: LORazepam 2 MG TABLET PO PRN (22:58)
[2020-10-17] MEDS: HALOPERIDOL 5 MG TABLET PO PRN (23:53)
[2020-10-17] MEDS: ZOLPIDEM TARTRATE 10 MG TABLET PO PRN (23:53)
[2020-10-18 05:27] VITALS: BP 119/91
[2020-10-18] MEDS: LORazepam 2 MG TABLET PO PRN ×4 (08:21→20:54)
[2020-10-18] MEDS: CloZAPine 25 MG TABLET PO SCH ×2 (08:21→16:54)
[2020-10-18] MEDS: OLANZapine 5 MG TABLET PO SCH (08:21)
[2020-10-18] MEDS: BuPROPion HCL XL 150 MG ER TABLET PO SCH (08:23)
[2020-10-18] MEDS: HALOPERIDOL 5 MG TABLET PO PRN ×2 (12:20→16:54)
[2020-10-18 16:10] VITALS: BP 108/68
[2020-10-18] MEDS: THIORIDAZINE HCL 50 MG TABLET PO SCH (16:54)
[2020-10-18] MEDS: ZOLPIDEM TARTRATE 10 MG TABLET PO PRN (20:54)
[2020-10-18] MEDS: CloZAPine 100 MG TABLET PO SCH (20:54)
[2020-10-19] MEDS: THIORIDAZINE HCL 50 MG TABLET PO SCH ×2 (08:19→16:34)
[2020-10-19] MEDS: BuPROPion HCL XL 150 MG ER TABLET PO SCH (08:19)
[2020-10-19] MEDS: CloZAPine 25 MG TABLET PO SCH ×2 (08:20→16:34)
[2020-10-19] MEDS: LORazepam 2 MG TABLET PO PRN (08:20)
[2020-10-19 08:28] VITALS: BP 112/66
[2020-10-19 15:08] LABS: GLUCOMETER DEV NAME(LOC) POC.BV
[2020-10-19 16:13] VITALS: BP 128/65
== END 2020-10-19 18:20 | disposition home or self-care (01) | DRG 750 ==
LOC: B3A 19:03
PROVIDERS: ADMIT Psychiatry & Neurology Child & Adolescent Psychiatry; ATTEND Psychiatry & Neurology Child & Adolescent Psychiatry
DX: F20.9 Schizophrenia, unspecified (principal); G40.909 Epilepsy, unspecified, not intractable, without status epilepticus; E03.9 Hypothyroidism, unspecified; E78.00 Pure hypercholesterolemia, unspecified; E78.5 Hyperlipidemia, unspecified; Z20.822 Contact with and (suspected) exposure to COVID-19
CPT/HCPCS: 80053; 80061; 83036; 84443; 84702; 85025

== ENCOUNTER 2021-06-20 18:22 | Inpatient (IN) | payer MEDICAID ==
[~2021-06-20] VITALS: Ht 162.6 cm; Wt 61.4 kg
[~2021-06-20 18:22] MED LIST changes: -ATOR40TA28 PO; -BUPR-93 PO; +ETOMIDATE 2 MG/ML 10 ML VIAL IVP ONE; -LEVE500T53 PO; -LEVO25TA4 PO; -OLAN7.5T22 PO
[2021-06-20 18:55] LABS: BASOPHILS % (AUTO) 0.3 % (0.0-2.0); EOSINOPHILS % (AUTO) 0.5 % (1.0-6.0); HEMATOCRIT 41.8 % (36-46); HEMOGLOBIN 13.8 g/dL (12.0-16.0); LYMPHOCYTES # (AUTO) 6.2 K/uL (1.0-4.8); LYMPHOCYTES % (AUTO) 29.7 % (22.0-44.0); MEAN CORPUSCULAR HEMOGLOBIN 30.4 pg (26.0-34.0); MEAN CORPUSCULAR HGB CONC 33.2 G/dL (31.0-37.0); MEAN CORPUSCULAR VOLUME 92 fL (80-100); MONOCYTES % (AUTO) 4.9 % (2.0-9.0); NEUTROPHILS # (AUTO) 13.4 K/uL (1.8-7.7); NEUTROPHILS % (AUTO) 64.6 % (40.0-70.0); PLATELET COUNT (AUTO) 383 K/uL (150-450); RED BLOOD CELL COUNT(AUTO) 4.55 MIL/uL (4.00-5.20); RED CELL DISTRIBUTION WIDTH 14.2 % (11.5-14.5)
[2021-06-20 19:06] LABS: ANION GAP 5 mmol/L (8-16); CALCIUM, TOTAL 9.1 mg/dL (8.8-10.5); CARBON DIOXIDE 26 mmol/L (22-29); CHLORIDE 102 mmol/L (98-107); CREATININE 0.84 mg/dL (0.60-1.30); GLOMERULAR FILTR. RATE CALC > 60 mL/min (>60); GLUCOSE,RANDOM 229 mg/dL (70-110); POTASSIUM 4.1 mmol/L (3.5-5.1); SODIUM SERUM 133 mmol/L (136-145); UREA NITROGEN, BLOOD 23 mg/dL (7-18)
[2021-06-20 19:11] LABS: ALANINE AMINOTRANSFERASE 37 U/L (12-78); ALBUMIN 3.5 g/dL (3.4-5.0); ALKALINE PHOSPHATASE 74 U/L (46-116); ASPARTATE AMINOTRANSFERASE 22 U/L (15-37); BILIRUBIN,TOTAL 0.2 mg/dL (0.1-1.0); TOTAL PROTEIN, SERUM 7.1 g/dL (6.4-8.2)
[2021-06-20 20:10] LABS: LIPASE 93 U/L (73-393)
[2021-06-20 20:24] LABS: LACTIC ACID 2.5 mmol/L (0.4-2.0)
[2021-06-20] MEDS ORDERED: PIPERACILLIN/TAZO 3.375 GM/D5W 50 ML IV ONE (21:00)
[2021-06-20] MEDS ORDERED: DEXTROSE 50%-WATER 25 GM/50 ML SYRINGE IVP PRN (21:30)
[2021-06-20] MEDS ORDERED: BISACODYL 10 MG RECTAL RECTAL SUPPOSITORY PR PRN (21:30)
[2021-06-20] MEDS ORDERED: ACETAMINOPHEN 325 MG TABLET PO PRN (21:30)
[2021-06-20] MEDS ORDERED: INSULIN LISPRO 100 UNITS/ML SQ PRN (21:30)
[2021-06-20] MEDS ORDERED: SODIUM CHLORIDE 0.45% 1,000 ML IV ONE (21:30)
[2021-06-20] MEDS ORDERED: ONDANSETRON HCL 4 MG/2 ML VIAL IVP PRN (21:30)
[2021-06-20] MEDS ORDERED: MAGNESIUM HYDROXIDE SUSPENSION 30 ML UDCUP PO PRN (21:30)
[2021-06-20] MEDS ORDERED: SODIUM PHOS/SODIUM BIPHOS 133 ML ENEMA PR ONE (21:45)
[2021-06-20 21:46] LABS: COVID AG,FIA SOURCE NASAL SWAB
[2021-06-20 22:55] VITALS: BP 112/77
[2021-06-20] MEDS ORDERED: SODIUM CHLORIDE 0.9% 1,500 ML IV ONE (23:00)
[2021-06-21 01:31] LABS: GLUCOMETER DEV NAME(LOC) 4E.2; GLUCOSE,POINT OF CARE 92 MG/DL (70-110)
[2021-06-21] MEDS: PIPERACILLIN/TAZO 3.375 GM/D5W 50 ML IV SCH ×4 (03:56→20:20)
[2021-06-21 05:15] VITALS: BP 118/72
[2021-06-21] MEDS ORDERED: MEGE40TA8 PO (05:15)
[2021-06-21] MEDS ORDERED: LEVE500T8 PO (05:15)
[2021-06-21] MEDS ORDERED: MULT-1203 PO (05:17)
[2021-06-21] MEDS ORDERED: LEVO25TA9 PO (05:20)
[2021-06-21] MEDS ORDERED: LORA-999 PO (05:20)
[2021-06-21] MEDS ORDERED: CLOZ25TA PO (05:21)
[2021-06-21] MEDS ORDERED: CLOZ100T PO (05:23)
[2021-06-21] MEDS ORDERED: HALO5TAB23 PO (05:24)
[2021-06-21] MEDS ORDERED: BENZ0.5T44 PO (05:24)
[2021-06-21] MEDS ORDERED: ACET-2247 PO (05:26)
[2021-06-21] MEDS ORDERED: AMOX1TAB16 PO (05:29)
[2021-06-21] MEDS ORDERED: BISA10SU11 PR (05:31)
[2021-06-21] MEDS ORDERED: MOM30 PO (05:34)
[2021-06-21] MEDS ORDERED: LORA-1000 PO (05:34)
[2021-06-21 06:31] LABS: GLUCOMETER DEV NAME(LOC) 4E.2; GLUCOSE,POINT OF CARE 84 MG/DL (70-110)
[2021-06-21 06:51] LABS: BASOPHILS % (AUTO) 0.3 % (0.0-2.0); EOSINOPHILS % (AUTO) 0.4 % (1.0-6.0); HEMATOCRIT 38.3 % (36-46); HEMOGLOBIN 13.4 g/dL (12.0-16.0); LYMPHOCYTES # (AUTO) 2.9 K/uL (1.0-4.8); LYMPHOCYTES % (AUTO) 15.2 % (22.0-44.0); MEAN CORPUSCULAR HEMOGLOBIN 31.5 pg (26.0-34.0); MEAN CORPUSCULAR HGB CONC 35.1 G/dL (31.0-37.0); MEAN CORPUSCULAR VOLUME 90 fL (80-100); MONOCYTES % (AUTO) 5.2 % (2.0-9.0); NEUTROPHILS # (AUTO) 14.8 K/uL (1.8-7.7); NEUTROPHILS % (AUTO) 78.9 % (40.0-70.0); PLATELET COUNT (AUTO) 299 K/uL (150-450); RED BLOOD CELL COUNT(AUTO) 4.26 MIL/uL (4.00-5.20)
[2021-06-21 07:58] VITALS: BP 136/93
[2021-06-21] MEDS: FAMOTIDINE 20 MG TABLET PO SCH ×2 (09:00→20:21)
[2021-06-21] MEDS: DOCUSATE SODIUM 100 MG CAPSULE PO SCH ×2 (09:00→20:21)
[2021-06-21] MEDS: LevETIRAcetam 500 MG TABLET PO SCH ×2 (09:05→20:21)
[2021-06-21] MEDS: CloZAPine 25 MG TABLET PO SCH ×3 (10:02→16:51)
[2021-06-21 11:51] LABS: GLUCOMETER DEV NAME(LOC) 6N.1; GLUCOSE,POINT OF CARE 86 MG/DL (70-110)
[2021-06-21 16:06] LABS: APPEARANCE,URINE CLEAR (CLEAR); BILIRUBIN,URINE NEGATIVE (NEGATIVE); GLUCOSE, URINE (UA) NEGATIVE (NEGATIVE); KETONES,URINE NEGATIVE (NEGATIVE); LEUKOCYTE ESTERASE ,URINE NEGATIVE (NEGATIVE); NITRATE,URINE NEGATIVE (NEGATIVE); OCCULT BLOOD,URINE NEGATIVE (NEGATIVE); PROTEIN,URINE NEGATIVE (NEGATIVE); UROBILINOGEN,URINE 0.2 mg/dL (<=1.0)
[2021-06-21 16:18] LABS: BACTERIA,URINE None Seen /HPF (None Seen); RBC,URINE None Seen /HPF (0-2); SQUAMOUS EPITHELIAL CELL,UR None Seen /LPF (None Seen); WBC,URINE None Seen /HPF (0-5)
[2021-06-21] MEDS: BENZTROPINE MESYLATE 0.5 MG TABLET PO SCH ×2 (16:51→20:21)
[2021-06-21 18:21] LABS: GLUCOMETER DEV NAME(LOC) 4E.2; GLUCOSE,POINT OF CARE 116 MG/DL (70-110)
[2021-06-21 19:36] VITALS: BP 109/69
[2021-06-21] MEDS ORDERED: CloZAPine 100 MG TABLET PO SCH (21:00)
[2021-06-21 23:31] LABS: GLUCOMETER DEV NAME(LOC) 4E.2; GLUCOSE,POINT OF CARE 102 MG/DL (70-110)
[2021-06-22] MEDS: PIPERACILLIN/TAZO 3.375 GM/D5W 50 ML IV SCH ×3 (03:12→15:16)
[2021-06-22 04:15] VITALS: BP 112/68
[2021-06-22 07:07] LABS: GLUCOMETER DEV NAME(LOC) 6N.1; GLUCOSE,POINT OF CARE 97 MG/DL (70-110)
[2021-06-22 07:16] LABS: BASOPHILS % (AUTO) 0.4 % (0.0-2.0); EOSINOPHILS % (AUTO) 0.9 % (1.0-6.0); HEMATOCRIT 41.7 % (36-46); HEMOGLOBIN 14.5 g/dL (12.0-16.0); LYMPHOCYTES # (AUTO) 3.5 K/uL (1.0-4.8); LYMPHOCYTES % (AUTO) 28.8 % (22.0-44.0); MEAN CORPUSCULAR HEMOGLOBIN 31.5 pg (26.0-34.0); MEAN CORPUSCULAR HGB CONC 34.7 G/dL (31.0-37.0); MEAN CORPUSCULAR VOLUME 91 fL (80-100); MONOCYTES # (AUTO) 0.7 K/uL (0.1-1.0); MONOCYTES % (AUTO) 6.1 % (2.0-9.0); NEUTROPHILS # (AUTO) 7.8 K/uL (1.8-7.7); NEUTROPHILS % (AUTO) 63.8 % (40.0-70.0); PLATELET COUNT (AUTO) 327 K/uL (150-450); RED BLOOD CELL COUNT(AUTO) 4.59 MIL/uL (4.00-5.20)
[2021-06-22] MEDS ORDERED: SODIUM CHLORIDE 0.9% 500 ML IV ONE (08:01)
[2021-06-22] MEDS: CloZAPine 25 MG TABLET PO SCH ×3 (08:04→16:08)
[2021-06-22] MEDS: DOCUSATE SODIUM 100 MG CAPSULE PO SCH (08:05)
[2021-06-22] MEDS: FAMOTIDINE 20 MG TABLET PO SCH (08:05)
[2021-06-22] MEDS: BENZTROPINE MESYLATE 0.5 MG TABLET PO SCH ×3 (08:05→16:08)
[2021-06-22] MEDS: LevETIRAcetam 500 MG TABLET PO SCH (08:05)
[2021-06-22 08:30] VITALS: BP 143/94
[2021-06-22] MEDS ORDERED: DOCU-270 PO (10:11)
[2021-06-22 16:04] VITALS: BP 106/74
== END 2021-06-22 20:00 | DRG 137 ==
LOC: EMS 18:28 → 6S 22:00
PROVIDERS: ADMIT Internal Medicine; ATTEND Internal Medicine
DX: J69.0 Pneumonitis due to inhalation of food and vomit (principal); T17.928A Food in respiratory tract, part unspecified causing other injury, initial encounter; F20.0 Paranoid schizophrenia; R65.10 Systemic inflammatory response syndrome (SIRS) of non-infectious origin without acute organ dysfunction; E03.9 Hypothyroidism, unspecified; Z20.822 Contact with and (suspected) exposure to COVID-19; G40.909 Epilepsy, unspecified, not intractable, without status epilepticus; K59.00 Constipation, unspecified; E78.00 Pure hypercholesterolemia, unspecified; X58.XXXA Exposure to other specified factors, initial encounter; Z87.891 Personal history of nicotine dependence; Z79.899 Other long term (current) drug therapy; Y93.89 Activity, other specified; Y92.89 Other specified places as the place of occurrence of the external cause; Y99.8 Other external cause status
CPT/HCPCS: 70450; 71045; 71250; 72192; 74150; 80053; 81001; 82962; 83036; 83605; 83690; 84443; 84484; 84703; 85025; 87040; 92610; 93005; 99291; J2543; J3490; J7030; J7040; 36415-L1; 36415-TC

== ENCOUNTER 2023-05-23 20:00 | Inpatient (IN) | payer MEDICAID, OTHER ==
[~2023-05-23] VITALS: Ht 162.6 cm; Wt 50.8 kg
[~2023-05-23 20:00] MED LIST changes: +ACET-2247 PO; +AMOX1TAB16 PO; +BENZ0.5T6 PO; +BISA10SU11 PR; +CLOZ100T61 PO; +CLOZ25TA PO; +DOCU-385 PO; -ETOMIDATE 2 MG/ML 10 ML VIAL IVP ONE; +HALO5TAB23 PO; +LEVE500T8 PO; +LEVO25TA9 PO; +LORA-1000 PO; +LORA-999 PO; +MAGN-169 PO; +MEGE40TA8 PO; +MULT-1203 PO
[2023-05-23] MEDS ORDERED: LORazepam 2 MG TABLET PO PRN (22:00)
[2023-05-23 22:42] LABS: COVID AG,FIA SOURCE NASAL SWAB
[2023-05-23 23:09] LABS: SARS-COV2 (COVID) ANTIGEN,FIA Negative (Negative)
[2023-05-23 23:35] LABS: BASOPHILS % (AUTO) 0.6 % (0.0-2.0); HEMATOCRIT 37.3 % (36-46); HEMOGLOBIN 12.4 g/dL (12.0-16.0); LYMPHOCYTES # (AUTO) 3.2 K/uL (1.0-4.8); LYMPHOCYTES % (AUTO) 41.6 % (22.0-44.0); MEAN CORPUSCULAR HEMOGLOBIN 30.1 pg (26.0-34.0); MEAN CORPUSCULAR HGB CONC 33.1 G/dL (31.0-37.0); MEAN CORPUSCULAR VOLUME 91 fL (80-100); MONOCYTES # (AUTO) 0.7 K/uL (0.1-1.0); MONOCYTES % (AUTO) 8.6 % (2.0-9.0); NEUTROPHILS # (AUTO) 3.5 K/uL (1.8-7.7); NEUTROPHILS % (AUTO) 46.2 % (40.0-70.0); PLATELET COUNT (AUTO) 197 K/uL (150-450); RED BLOOD CELL COUNT(AUTO) 4.11 MIL/uL (4.00-5.20); RED CELL DISTRIBUTION WIDTH 13.7 % (11.5-14.5); WHITE BLOOD COUNT (AUTO) 7.6 K/uL (4.5-11.0)
[2023-05-23 23:43] LABS: ANION GAP 8 mmol/L (8-16); CARBON DIOXIDE 28 mmol/L (22-29); CHLORIDE 100 mmol/L (98-107); CREATININE 0.61 mg/dL (0.60-1.30); GLOMERULAR FILTR. RATE CALC > 60 mL/min (>60); GLUCOSE,RANDOM 95 mg/dL (70-110); POTASSIUM 3.9 mmol/L (3.5-5.1); SODIUM SERUM 136 mmol/L (136-145); UREA NITROGEN, BLOOD 18 mg/dL (7-18)
[2023-05-23 23:49] LABS: ALANINE AMINOTRANSFERASE 31 U/L (12-78); ALBUMIN 3.3 g/dL (3.4-5.0); ALKALINE PHOSPHATASE 134 U/L (46-116); ASPARTATE AMINOTRANSFERASE 24 U/L (15-37); BILIRUBIN,TOTAL 0.2 mg/dL (0.1-1.0)
[2023-05-23 23:52] LABS: ALCOHOL, BLOOD (SERUM) < 3 mg/dL (0-10)
[2023-05-24] MEDS ORDERED: INFLUENZA VIRUS VACCINE QVS 2023-24 (6MO+)/PF 60 MCG/0.5 ML SYRINGE IM. ONE (02:15)
[2023-05-24 02:37] VITALS: RESP 18
[2023-05-24] MEDS ORDERED: LOPERAMIDE HCL 2 MG CAPSULE PO PRN (06:30)
[2023-05-24] MEDS ORDERED: ONDANSETRON HCL 4 MG TABLET PO PRN (06:30)
[2023-05-24] MEDS ORDERED: ACETAMINOPHEN 325 MG TABLET PO PRN (06:30)
[2023-05-24] MEDS ORDERED: MAG HYDROX/ALUMINUM HYD/SIMETH ES 30 ML SUSPENSION UDCUP PO PRN (06:30)
[2023-05-24] MEDS ORDERED: NICOTINE 14 MG/24 HOUR PATCH TD PRN (06:30)
[2023-05-24] MEDS ORDERED: IBUPROFEN 400 MG TABLET PO PRN (06:30)
[2023-05-24] MEDS ORDERED: PETROLATUM,WHITE 28 GM JELLY TP PRN (06:30)
[2023-05-24] MEDS ORDERED: GuaiFENesin/D-METHORPHAN [SUGAR-FREE] 200-20MG/10 ML SYRUP UDCUP PO PRN (06:30)
[2023-05-24] MEDS ORDERED: ALBUTEROL SULFATE HFA 90 MCG/PUFF 8 GM INHALER IH PRN (06:30)
[2023-05-24] MEDS ORDERED: CloNIDine HCL 0.1 MG TABLET PO PRN (06:30)
[2023-05-24] MEDS ORDERED: MAGNESIUM HYDROXIDE SUSPENSION 30 ML UDCUP PO PRN (06:30)
[2023-05-24 09:24] VITALS: BP 116/74; PULSE 97; RESP 18; O2SAT 98
[2023-05-24] MEDS: LevETIRAcetam 500 MG TABLET PO SCH (09:24)
[2023-05-24] MEDS: MEGESTROL ACETATE 400 MG/10 ML SUSPENSION UDCUP PO SCH (09:25)
[2023-05-24] MEDS: BACITRACIN 28 GM OINTMENT TP SCH (09:27)
[2023-05-24] MEDS: BENZTROPINE MESYLATE 0.5 MG TABLET PO SCH (12:05)
[2023-05-24] MEDS: CloZAPine 25 MG TABLET PO SCH (12:06)
[2023-05-24 13:53] LABS: HEMOGLOBIN 13.2 g/dL (12.0-16.0); LYMPHOCYTES # (AUTO) 2.1 K/uL (1.0-4.8); MEAN CORPUSCULAR HEMOGLOBIN 30.4 pg (26.0-34.0); MEAN CORPUSCULAR HGB CONC 33.5 G/dL (31.0-37.0); MONOCYTES # (AUTO) 0.6 K/uL (0.1-1.0); NEUTROPHILS # (AUTO) 4.5 K/uL (1.8-7.7); PLATELET COUNT (AUTO) 219 K/uL (150-450)
[2023-05-24 14:01] LABS: HEMOGLOBIN A1C 5.4 % (3.8-5.6)
[2023-05-24 14:13] LABS: BASOPHILS % (AUTO) 0.6 % (0.0-2.0); EOSINOPHILS % (AUTO) 2.7 % (1.0-6.0); HEMATOCRIT 39.4 % (36-46); LYMPHOCYTES % (AUTO) 28.4 % (22.0-44.0); MEAN CORPUSCULAR VOLUME 91 fL (80-100); MONOCYTES % (AUTO) 8.3 % (2.0-9.0); RED BLOOD CELL COUNT(AUTO) 4.35 MIL/uL (4.00-5.20); RED CELL DISTRIBUTION WIDTH 13.9 % (11.5-14.5); WHITE BLOOD COUNT (AUTO) 7.5 K/uL (4.5-11.0)
[2023-05-24 14:34] LABS: ALANINE AMINOTRANSFERASE 46 U/L (12-78); ALBUMIN 3.4 g/dL (3.4-5.0); ALKALINE PHOSPHATASE 142 U/L (46-116); ANION GAP 7 mmol/L (8-16); ASPARTATE AMINOTRANSFERASE 33 U/L (15-37); BILIRUBIN,TOTAL 0.2 mg/dL (0.1-1.0); CARBON DIOXIDE 28 mmol/L (22-29); CHLORIDE 101 mmol/L (98-107); CHOL/HDL RATIO 4.6 (3.9-5.7); CHOLESTEROL 199 mg/dL (131-200); CREATININE 0.64 mg/dL (0.60-1.30); GLOMERULAR FILTR. RATE CALC > 60 mL/min (>60); GLUCOSE,RANDOM 108 mg/dL (70-110); HDL CHOLESTEROL 43 mg/dL (40-60); LDL CHOL (CALC.) 141 mg/dL (0-130); POTASSIUM 4.4 mmol/L (3.5-5.1); SODIUM SERUM 136 mmol/L (136-145); THYROID STIMULATING HORMONE 2.36 uIU/mL (0.36-3.74); TOTAL PROTEIN, SERUM 6.3 g/dL (6.4-8.2); TRIGLYCERIDES 75 mg/dL (15-150); UREA NITROGEN, BLOOD 16 mg/dL (7-18)
[2023-05-24] MEDS: HALOPERIDOL 10 MG TABLET PO SCH (16:30)
[2023-05-24] MEDS: CloZAPine 100 MG TABLET PO SCH (20:18)
[2023-05-24 21:12] VITALS: BP 112/90; PULSE 108; RESP 18; TEMP 96.5; O2SAT 97
[2023-05-25] MEDS: LEVOTHYROXINE SODIUM 25 MCG TABLET PO SCH (06:36)
[2023-05-25 08:22] VITALS: BP 109/71; PULSE 97; RESP 18; TEMP 97.6; O2SAT 98
[2023-05-25 20:06] VITALS: BP 114/77; PULSE 94; RESP 18; TEMP 97.3; O2SAT 97
[2023-05-26 08:19] VITALS: BP 134/86; PULSE 96; RESP 16; TEMP 97.8; O2SAT 97
[2023-05-26 20:45] VITALS: BP 118/78; PULSE 92; RESP 16; TEMP 98.1; O2SAT 98
[2023-05-26] MEDS: CloZAPine 100 MG TABLET PO SCH (20:45)
[2023-05-26] MEDS: ZOLPIDEM TARTRATE 10 MG TABLET PO PRN (22:51)
[2023-05-27 08:03] VITALS: BP 121/72; PULSE 97; RESP 18; TEMP 97.5; O2SAT 98
[2023-05-27 20:27] VITALS: RESP 18
[2023-05-28 08:03] VITALS: BP 121/73; PULSE 91; RESP 18; TEMP 97.6; O2SAT 95
[2023-05-28] MEDS: DOCUSATE SODIUM 100 MG CAPSULE PO PRN (17:53)
[2023-05-28 20:15] VITALS: RESP 18
[2023-05-29 08:29] VITALS: BP 129/79; PULSE 82; RESP 18; TEMP 98.8; O2SAT 98
[2023-05-29] MEDS: MUPIROCIN CALCIUM 2% 22 GM OINTMENT NASAL SCH (09:20)
[2023-05-29 20:13] VITALS: BP 108/60; PULSE 83; RESP 18; TEMP 97.8; O2SAT 97
[2023-05-30 08:14] VITALS: BP 103/67; PULSE 90; RESP 18; TEMP 97.9; O2SAT 99
[2023-05-30 20:05] VITALS: RESP 18
[2023-05-31 08:09] VITALS: BP 144/83; PULSE 90; RESP 18; TEMP 97.9; O2SAT 100
[2023-05-31 09:56] LABS: BASOPHILS % (AUTO) 0.4 % (0.0-2.0); EOSINOPHILS % (AUTO) 0.7 % (1.0-6.0); HEMATOCRIT 40.2 % (36-46); HEMOGLOBIN 13.1 g/dL (12.0-16.0); LYMPHOCYTES # (AUTO) 3.2 K/uL (1.0-4.8); LYMPHOCYTES % (AUTO) 26.6 % (22.0-44.0); MEAN CORPUSCULAR HEMOGLOBIN 29.8 pg (26.0-34.0); MEAN CORPUSCULAR HGB CONC 32.6 G/dL (31.0-37.0); MEAN CORPUSCULAR VOLUME 91 fL (80-100); MONOCYTES # (AUTO) 0.7 K/uL (0.1-1.0); MONOCYTES % (AUTO) 6.2 % (2.0-9.0); NEUTROPHILS % (AUTO) 66.1 % (40.0-70.0); PLATELET COUNT (AUTO) 244 K/uL (150-450); RED CELL DISTRIBUTION WIDTH 14.5 % (11.5-14.5); WHITE BLOOD COUNT (AUTO) 12.1 K/uL (4.5-11.0)
[2023-05-31 20:05] VITALS: BP 134/81; PULSE 86; RESP 18; TEMP 97.8; O2SAT 99
[2023-06-01 08:07] VITALS: BP 115/69; PULSE 82; RESP 17; TEMP 98; O2SAT 97
[2023-06-01 19:33] VITALS: BP 131/86; PULSE 96; RESP 18; TEMP 97.3; O2SAT 99
[2023-06-01 20:07] VITALS: BP 143/85; PULSE 100; RESP 18; TEMP 97.3; O2SAT 100
[2023-06-02 08:01] VITALS: BP 138/83; PULSE 89; RESP 18; TEMP 97.8; O2SAT 98
[2023-06-02 20:49] VITALS: BP 140/79; PULSE 89; RESP 18; TEMP 97.6; O2SAT 98
[2023-06-03 08:13] VITALS: BP 105/66; PULSE 93; RESP 16; TEMP 98.7; O2SAT 98
[2023-06-03 20:34] VITALS: RESP 18
[2023-06-04 10:37] VITALS: BP 132/85; PULSE 81; RESP 18; TEMP 97.2; O2SAT 97
[2023-06-04 20:03] VITALS: BP 144/97; PULSE 90; RESP 19; TEMP 98.4; O2SAT 99
[2023-06-05 08:30] VITALS: BP 125/84; PULSE 86; RESP 19; TEMP 98.1; O2SAT 86
[2023-06-05 22:33] VITALS: BP 131/83; PULSE 103; RESP 18; TEMP 97.3; O2SAT 99
[2023-06-06] MEDS: HALOPERIDOL 5 MG TABLET PO PRN (00:29)
[2023-06-06 08:24] VITALS: BP 135/85; PULSE 113; RESP 18; TEMP 97.1; O2SAT 100
== END 2023-06-06 13:00 | DRG 750 ==
LOC: EMS 20:01 → 3EC 05-24 00:19
PROVIDERS: ADMIT Psychiatry & Neurology Child & Adolescent Psychiatry; ATTEND Psychiatry & Neurology Child & Adolescent Psychiatry
PROC: GZHZZZZ Group Psychotherapy (ICD-10-PCS; principal; 2023-05-30)
DX: F20.0 Paranoid schizophrenia (principal); E44.0 Moderate protein-calorie malnutrition; R45.851 Suicidal ideations; G40.909 Epilepsy, unspecified, not intractable, without status epilepticus; E03.9 Hypothyroidism, unspecified; E78.00 Pure hypercholesterolemia, unspecified; Z20.822 Contact with and (suspected) exposure to COVID-19; F17.210 Nicotine dependence, cigarettes, uncomplicated; Z68.1 Body mass index [BMI] 19.9 or less, adult; Z79.899 Other long term (current) drug therapy; Z59.00 Homelessness unspecified
CPT/HCPCS: 80053; 80061; 83036; 84443; 85025; 87081; 99285; G0480; G0482

== ENCOUNTER 2024-02-13 16:44 | Inpatient (IN) | payer MEDICAID ==
[~2024-02-13] VITALS: Ht 167.6 cm; Wt 65.8 kg
[~2024-02-13 16:44] MED LIST changes: -ACET-2247 PO; -AMOX1TAB16 PO; +BENZ0.5T52 PO; -BENZ0.5T6 PO; -BISA10SU11 PR; -DOCU-385 PO; -LORA-1000 PO; -LORA-999 PO; -MAGN-169 PO; -MULT-1203 PO
[2024-02-13 17:52] LABS: COVID AG,FIA SOURCE NASAL SWAB
[2024-02-13 17:56] LABS: BASOPHILS % (AUTO) 0.5 % (0.0-2.0); HEMATOCRIT 36.8 % (36-46); HEMOGLOBIN 12.3 g/dL (12.0-16.0); LYMPHOCYTES # (AUTO) 3.7 K/uL (1.0-4.8); LYMPHOCYTES % (AUTO) 33.6 % (22.0-44.0); MEAN CORPUSCULAR HEMOGLOBIN 31.3 pg (26.0-34.0); MEAN CORPUSCULAR HGB CONC 33.4 G/dL (31.0-37.0); MEAN CORPUSCULAR VOLUME 94 fL (80-100); MONOCYTES % (AUTO) 9.2 % (2.0-9.0); NEUTROPHILS % (AUTO) 54.7 % (40.0-70.0); PLATELET COUNT (AUTO) 286 K/uL (150-450); RED BLOOD CELL COUNT(AUTO) 3.93 MIL/uL (4.00-5.20); WHITE BLOOD COUNT (AUTO) 10.9 K/uL (4.5-11.0)
[2024-02-13 18:05] LABS: ANION GAP 8 mmol/L (8-16); CALCIUM, TOTAL 9.4 mg/dL (8.8-10.5); CARBON DIOXIDE 25 mmol/L (22-29); CHLORIDE 106 mmol/L (98-107); CREATININE 0.83 mg/dL (0.60-1.30); GLOMERULAR FILTR. RATE CALC > 60 mL/min (>60); GLUCOSE,RANDOM 90 mg/dL (70-110); POTASSIUM 3.7 mmol/L (3.5-5.1); SODIUM SERUM 139 mmol/L (136-145); UREA NITROGEN, BLOOD 22 mg/dL (7-18)
[2024-02-13 18:11] LABS: ALCOHOL, BLOOD (SERUM) < 3 mg/dL (0-10)
[2024-02-13 18:13] LABS: SARS-COV2 (COVID) ANTIGEN,FIA Negative (Negative)
[2024-02-13 18:27] VITALS: O2SAT 98
[2024-02-13] MEDS: LORazepam 2 MG/ML VIAL IM ONE (18:27)
[2024-02-13] MEDS: DiphenhydrAMINE HCL 50 MG/ML VIAL IM ONE (18:27)
[2024-02-13] MEDS: HALOPERIDOL LACTATE 5 MG/ML VIAL IM ONE (18:31)
[2024-02-13 19:01] LABS: CREATINE KINASE, TOTAL ONLY 130 U/L (26-192)
[2024-02-13] MEDS ORDERED: HALOPERIDOL 5 MG TABLET PO PRN (23:30)
[2024-02-14] MEDS: LEVOTHYROXINE SODIUM 25 MCG TABLET PO SCH (06:30)
[2024-02-14] MEDS: DOCUSATE SODIUM 100 MG CAPSULE PO SCH (08:49)
[2024-02-14] MEDS: LevETIRAcetam 500 MG TABLET PO SCH ×2 (08:49→16:07)
[2024-02-14 08:56] LABS: BASOPHILS % (AUTO) 0.6 % (0.0-2.0); EOSINOPHILS % (AUTO) 2.3 % (1.0-6.0); HEMATOCRIT 38.7 % (36-46); HEMOGLOBIN 12.8 g/dL (12.0-16.0); MEAN CORPUSCULAR HEMOGLOBIN 30.9 pg (26.0-34.0); MEAN CORPUSCULAR VOLUME 94 fL (80-100); MONOCYTES # (AUTO) 0.8 K/uL (0.1-1.0); MONOCYTES % (AUTO) 8.4 % (2.0-9.0); NEUTROPHILS # (AUTO) 5.7 K/uL (1.8-7.7); NEUTROPHILS % (AUTO) 57.7 % (40.0-70.0); PLATELET COUNT (AUTO) 273 K/uL (150-450); RED BLOOD CELL COUNT(AUTO) 4.13 MIL/uL (4.00-5.20); RED CELL DISTRIBUTION WIDTH 14.3 % (11.5-14.5); WHITE BLOOD COUNT (AUTO) 9.8 K/uL (4.5-11.0)
[2024-02-14] MEDS: POLYETHYLENE GLYCOL 3350 17 GM PACKET PO SCH (09:00)
[2024-02-14 09:19] LABS: ALANINE AMINOTRANSFERASE 31 U/L (12-78); ALBUMIN 3.4 g/dL (3.4-5.0); ALKALINE PHOSPHATASE 85 U/L (46-116); ANION GAP 8 mmol/L (8-16); ASPARTATE AMINOTRANSFERASE 27 U/L (15-37); BILIRUBIN,TOTAL 0.5 mg/dL (0.1-1.0); CARBON DIOXIDE 23 mmol/L (22-29); CHLORIDE 106 mmol/L (98-107); CHOL/HDL RATIO 4.4 (3.9-5.7); CHOLESTEROL 164 mg/dL (131-200); CREATININE 0.78 mg/dL (0.60-1.30); FREE T4 (FREE THYROXINE) 0.89 ng/dL (0.76-1.46); GLOMERULAR FILTR. RATE CALC > 60 mL/min (>60); GLUCOSE,RANDOM 85 mg/dL (70-110); HDL CHOLESTEROL 37 mg/dL (40-60); LDL CHOL (CALC.) 107 mg/dL (0-130); POTASSIUM 3.8 mmol/L (3.5-5.1); SODIUM SERUM 137 mmol/L (136-145); THYROID STIMULATING HORMONE 13.94 uIU/mL (0.36-3.74); TOTAL PROTEIN, SERUM 6.8 g/dL (6.4-8.2); TRIGLYCERIDES 102 mg/dL (15-150); UREA NITROGEN, BLOOD 16 mg/dL (7-18)
[2024-02-14 09:29] LABS: HEMOGLOBIN A1C 5.3 % (3.8-5.6)
[2024-02-14 10:06] VITALS: BP 143/92; PULSE 64; RESP 17; TEMP 97.1; O2SAT 98
[2024-02-14] MEDS ORDERED: IBUPROFEN 400 MG TABLET PO PRN (11:45)
[2024-02-14] MEDS ORDERED: NICOTINE 14 MG/24 HOUR PATCH TD PRN (11:45)
[2024-02-14] MEDS ORDERED: LOPERAMIDE HCL 2 MG CAPSULE PO PRN (11:45)
[2024-02-14] MEDS ORDERED: MAGNESIUM HYDROXIDE SUSPENSION 30 ML UDCUP PO PRN (11:45)
[2024-02-14] MEDS ORDERED: MAG HYDROX/ALUMINUM HYD/SIMETH ES 30 ML SUSPENSION UDCUP PO PRN (11:45)
[2024-02-14] MEDS ORDERED: CloNIDine HCL 0.1 MG TABLET PO PRN (11:45)
[2024-02-14] MEDS ORDERED: PETROLATUM,WHITE 28 GM JELLY TP PRN (11:45)
[2024-02-14] MEDS ORDERED: GuaiFENesin/D-METHORPHAN [SUGAR-FREE] 200-20MG/10 ML SYRUP UDCUP PO PRN (11:45)
[2024-02-14] MEDS ORDERED: ACETAMINOPHEN 325 MG TABLET PO PRN (11:45)
[2024-02-14] MEDS ORDERED: ALBUTEROL SULFATE HFA 90 MCG/PUFF 8 GM INHALER IH PRN (11:45)
[2024-02-14] MEDS ORDERED: ONDANSETRON 4 MG TABLET PO PRN (11:45)
[2024-02-14] MEDS ORDERED: DOCUSATE SODIUM 100 MG CAPSULE PO PRN (11:45)
[2024-02-14] MEDS ORDERED: LITH300T45 PO (13:13)
[2024-02-14] MEDS ORDERED: LITH450T25 PO (13:13)
[2024-02-14] MEDS ORDERED: OLAN20TA20 PO (13:22)
[2024-02-14] MEDS ORDERED: CLOZ25TA PO (13:24)
[2024-02-14] MEDS ORDERED: CLOZ100T61 PO (13:24)
[2024-02-14] MEDS ORDERED: BENZ0.5T52 PO (13:25)
[2024-02-14] MEDS ORDERED: HALO5TAB23 PO (13:28)
[2024-02-14] MEDS: LITHIUM CARBONATE 450 MG ER TABLET PO SCH (13:30)
[2024-02-14] MEDS ORDERED: MEGE400O39 PO (13:40)
[2024-02-14] MEDS: LITHIUM CARBONATE 300 MG ER TABLET PO SCH (13:55)
[2024-02-14] MEDS: BENZTROPINE MESYLATE 0.5 MG TABLET PO SCH (16:06)
[2024-02-14] MEDS: HALOPERIDOL 10 MG TABLET PO SCH (16:06)
[2024-02-14] MEDS: CloZAPine 25 MG TABLET PO SCH (16:07)
[2024-02-14] MEDS: OLANZapine 10 MG TABLET PO SCH (20:37)
[2024-02-14] MEDS: CloZAPine 100 MG TABLET PO SCH (20:38)
[2024-02-14] MEDS ORDERED: [UNRECOGNIZED DRUG - OTHER] PO SCH (21:00)
[2024-02-15 00:42] VITALS: RESP 20
[2024-02-15 08:00] VITALS: BP 138/90; PULSE 100; RESP 18; TEMP 97.4; O2SAT 98
[2024-02-15 08:51] LABS: HEMOGLOBIN A1C 5.3 % (3.8-5.6)
[2024-02-15 09:10] LABS: CHOL/HDL RATIO 4.5 (3.9-5.7); THYROID STIMULATING HORMONE 5.15 uIU/mL (0.36-3.74)
[2024-02-15] MEDS: LORazepam 2 MG TABLET PO PRN (10:40)
[2024-02-15 12:00] VITALS: RESP 19
[2024-02-15] MEDS: ZOLPIDEM TARTRATE 10 MG TABLET PO PRN (21:15)
[2024-02-16 08:16] VITALS: RESP 18
[2024-02-17 08:28] VITALS: BP 107/76; PULSE 69; RESP 17; TEMP 97.3; O2SAT 97
[2024-02-17 20:27] VITALS: BP 121/89; PULSE 90; RESP 19; TEMP 98.1; O2SAT 98
[2024-02-18 08:33] VITALS: BP 109/66; PULSE 70; RESP 16; TEMP 97.2; O2SAT 96
[2024-02-18 21:31] VITALS: BP 110/70; PULSE 64; RESP 16; TEMP 97.1; O2SAT 99
[2024-02-19 08:15] VITALS: RESP 16
[2024-02-19 09:07] LABS: CLOZAPINE & NORCLOZAPINE 332 ng/mL; NORCLOZAPINE 118 ng/mL (Not Estab.)
[2024-02-19 09:35] VITALS: BP 134/43; PULSE 110; RESP 18; TEMP 97.4; O2SAT 98
[2024-02-19] MEDS ORDERED: DOCU-385 PO (12:31)
[2024-02-19] MEDS ORDERED: POLY17PO47 PO (12:31)
[2024-02-19] MEDS ORDERED: LORazepam 2 MG/ML VIAL IM ONE (12:45)
[2024-02-19] MEDS ORDERED: HALOPERIDOL LACTATE 5 MG/ML VIAL IM ONE (12:45)
[2024-02-20] MEDS ORDERED: HALO10TA21 PO (11:16)
== END 2024-02-19 16:57 | disposition short-term general hospital (02) | DRG 750 ==
LOC: EMS 16:44 → B3A 02-14 01:23
PROVIDERS: ADMIT Psychiatry & Neurology Psychiatry; ATTEND Psychiatry & Neurology Psychiatry
PROC: GZ56ZZZ Individual Psychotherapy, Supportive (ICD-10-PCS; principal; 2024-02-14)
PROC: GZHZZZZ Group Psychotherapy (ICD-10-PCS; 2024-02-14)
PROC: GZ52ZZZ Individual Psychotherapy, Cognitive (ICD-10-PCS; 2024-02-14)
DX: F20.0 Paranoid schizophrenia (principal); G40.909 Epilepsy, unspecified, not intractable, without status epilepticus; E03.9 Hypothyroidism, unspecified; Z20.822 Contact with and (suspected) exposure to COVID-19; E78.00 Pure hypercholesterolemia, unspecified; F17.210 Nicotine dependence, cigarettes, uncomplicated; F41.9 Anxiety disorder, unspecified; I10 Essential (primary) hypertension; R94.31 Abnormal electrocardiogram [ECG] [EKG]; Z79.899 Other long term (current) drug therapy
CPT/HCPCS: 80048; 80053; 80061; 80159; 80178; 82140; 82550; 83036; 84439; 84443; 85025; 86592; 87081; 87481; 99285; 99291; G0480; G0482; J1200; J1630; J2060

== ENCOUNTER 2024-02-24 17:27 | Inpatient (IN) | payer MEDICAID ==
[~2024-02-24] VITALS: Ht 154.9 cm; Wt 59.0 kg
[~2024-02-24 17:27] MED LIST changes: +DOCU-385 PO; +HALO10TA21 PO; -HALO5TAB23 PO; +LITH300T45 PO; +LITH450T25 PO; -MEGE40TA8 PO; +OLAN20TA20 PO; +POLY17PO47 PO
[2024-02-24] MEDS: ZOLPIDEM TARTRATE 10 MG TABLET PO PRN (23:45)
[2024-02-25 00:33] VITALS: RESP 20; TEMP 98.9
[2024-02-25 00:38] VITALS: RESP 20; TEMP 98.9
[2024-02-25 02:20] VITALS: BP 145/85; PULSE 110; RESP 20; TEMP 98.9; O2SAT 99
[2024-02-25] MEDS: HALOPERIDOL 5 MG TABLET PO PRN (02:24)
[2024-02-25] MEDS ORDERED: IBUPROFEN 400 MG TABLET PO PRN (06:30)
[2024-02-25] MEDS ORDERED: ONDANSETRON 4 MG TABLET PO PRN (06:30)
[2024-02-25] MEDS ORDERED: DOCUSATE SODIUM 100 MG CAPSULE PO PRN (06:30)
[2024-02-25] MEDS ORDERED: GuaiFENesin/D-METHORPHAN [SUGAR-FREE] 200-20MG/10 ML SYRUP UDCUP PO PRN (06:30)
[2024-02-25] MEDS ORDERED: ALBUTEROL SULFATE HFA 90 MCG/PUFF 8 GM INHALER IH PRN (06:30)
[2024-02-25] MEDS ORDERED: MAG HYDROX/ALUMINUM HYD/SIMETH ES 30 ML SUSPENSION UDCUP PO PRN (06:30)
[2024-02-25] MEDS ORDERED: LOPERAMIDE HCL 2 MG CAPSULE PO PRN (06:30)
[2024-02-25] MEDS ORDERED: PETROLATUM,WHITE 28 GM JELLY TP PRN (06:30)
[2024-02-25] MEDS ORDERED: ACETAMINOPHEN 325 MG TABLET PO PRN (06:30)
[2024-02-25] MEDS ORDERED: MAGNESIUM HYDROXIDE SUSPENSION 30 ML UDCUP PO PRN (06:30)
[2024-02-25] MEDS ORDERED: CloNIDine HCL 0.1 MG TABLET PO PRN (06:30)
[2024-02-25] MEDS ORDERED: NICOTINE 14 MG/24 HOUR PATCH TD PRN (06:30)
[2024-02-25] MEDS: LEVOTHYROXINE SODIUM 25 MCG TABLET PO SCH (07:00)
[2024-02-25 08:30] VITALS: BP 149/99; PULSE 100; RESP 19; TEMP 98.4; O2SAT 99
[2024-02-25] MEDS: POLYETHYLENE GLYCOL 3350 17 GM PACKET PO SCH (08:43)
[2024-02-25] MEDS: LevETIRAcetam 500 MG TABLET PO SCH (08:43)
[2024-02-25] MEDS: HALOPERIDOL 5 MG TABLET PO SCH (16:20)
[2024-02-25] MEDS: BENZTROPINE MESYLATE 0.5 MG TABLET PO SCH (16:20)
[2024-02-25 21:00] VITALS: RESP 18; TEMP 97.9
[2024-02-25 21:14] VITALS: RESP 18
[2024-02-25] MEDS: OLANZapine 10 MG TABLET PO SCH (21:43)
[2024-02-25] MEDS: CloZAPine 100 MG TABLET PO SCH (21:43)
[2024-02-26 07:12] LABS: BASOPHILS % (AUTO) 0.5 % (0.0-2.0); EOSINOPHILS % (AUTO) 5.7 % (1.0-6.0); HEMATOCRIT 37.1 % (36-46); HEMOGLOBIN 12.4 g/dL (12.0-16.0); LYMPHOCYTES # (AUTO) 2.2 K/uL (1.0-4.8); LYMPHOCYTES % (AUTO) 30.8 % (22.0-44.0); MEAN CORPUSCULAR HEMOGLOBIN 31.1 pg (26.0-34.0); MEAN CORPUSCULAR HGB CONC 33.6 G/dL (31.0-37.0); MEAN CORPUSCULAR VOLUME 93 fL (80-100); MONOCYTES # (AUTO) 0.8 K/uL (0.1-1.0); MONOCYTES % (AUTO) 11.5 % (2.0-9.0); NEUTROPHILS # (AUTO) 3.7 K/uL (1.8-7.7); NEUTROPHILS % (AUTO) 51.5 % (40.0-70.0); PLATELET COUNT (AUTO) 281 K/uL (150-450); RED CELL DISTRIBUTION WIDTH 14.2 % (11.5-14.5); WHITE BLOOD COUNT (AUTO) 7.1 K/uL (4.5-11.0)
[2024-02-26 07:31] LABS: ALANINE AMINOTRANSFERASE 33 U/L (12-78); ALBUMIN 3.1 g/dL (3.4-5.0); ALKALINE PHOSPHATASE 86 U/L (46-116); ANION GAP 12 mmol/L (8-16); ASPARTATE AMINOTRANSFERASE 38 U/L (15-37); BILIRUBIN,TOTAL 0.4 mg/dL (0.1-1.0); CALCIUM, TOTAL 9.1 mg/dL (8.8-10.5); CARBON DIOXIDE 24 mmol/L (22-29); CHLORIDE 107 mmol/L (98-107); CHOL/HDL RATIO 3.4 (3.9-5.7); CHOLESTEROL 135 mg/dL (131-200); CREATININE 0.68 mg/dL (0.60-1.30); GLOMERULAR FILTR. RATE CALC > 60 mL/min (>60); GLUCOSE,RANDOM 100 mg/dL (70-110); HDL CHOLESTEROL 40 mg/dL (40-60); LDL CHOL (CALC.) 73 mg/dL (0-130); POTASSIUM 3.2 mmol/L (3.5-5.1); SODIUM SERUM 142 mmol/L (136-145); TOTAL PROTEIN, SERUM 6.1 g/dL (6.4-8.2); TRIGLYCERIDES 108 mg/dL (15-150); UREA NITROGEN, BLOOD 5 mg/dL (7-18)
[2024-02-26 07:52] LABS: THYROID STIMULATING HORMONE 5.57 uIU/mL (0.36-3.74)
[2024-02-26] MEDS ORDERED: DOCUSATE SODIUM 100 MG CAPSULE PO PRN (09:00)
[2024-02-26] MEDS: CloZAPine 25 MG TABLET PO SCH (10:38)
[2024-02-26] MEDS: LITHIUM CARBONATE 300 MG TABLET PO SCH (10:39)
[2024-02-26 13:28] VITALS: BP 118/64; PULSE 103; RESP 18; TEMP 97.6; O2SAT 97
[2024-02-26] MEDS: LORazepam 1 MG TABLET PO ONE (14:45)
[2024-02-26] MEDS: QUEtiapine FUMARATE 100 MG TABLET PO ONE (14:45)
[2024-02-26] MEDS: POTASSIUM CHLORIDE 20 MEQ ER TABLET PO ONE (14:56)
[2024-02-26] MEDS: CloZAPine 100 MG TABLET PO SCH (14:58)
[2024-02-26 20:02] VITALS: BP 123/77; PULSE 104; RESP 18; TEMP 97.9; O2SAT 98
[2024-02-27 10:50] VITALS: BP 128/80; PULSE 100; RESP 18; TEMP 97.8; O2SAT 98
[2024-02-27] MEDS ORDERED: CLOZ25TA52 PO (12:15)
[2024-02-27] MEDS ORDERED: CLOZ100T61 PO (12:17)
[2024-02-27] MEDS ORDERED: HALO5TAB23 PO (12:19)
[2024-03-02 21:06] LABS: CLOZAPINE & NORCLOZAPINE 259 ng/mL; NORCLOZAPINE 48 ng/mL (Not Estab.)
== END 2024-02-27 17:05 | DRG 750 ==
LOC: 3EI 23:07
PROVIDERS: ADMIT Psychiatry & Neurology Child & Adolescent Psychiatry; ATTEND Psychiatry & Neurology Child & Adolescent Psychiatry
PROC: GZ56ZZZ Individual Psychotherapy, Supportive (ICD-10-PCS; principal; 2024-02-25)
DX: F20.0 Paranoid schizophrenia (principal); G40.909 Epilepsy, unspecified, not intractable, without status epilepticus; E03.9 Hypothyroidism, unspecified; E78.5 Hyperlipidemia, unspecified; I10 Essential (primary) hypertension; E87.6 Hypokalemia; R29.6 Repeated falls
CPT/HCPCS: 80053; 80061; 80159; 83036; 84443; 85025; 87081; 92526; 93005

== ENCOUNTER 2024-04-03 00:58 | Emergency (ER) | payer MEDICAID ==
[~2024-04-03] VITALS: Ht 152.4 cm; Wt 59.1 kg
[~2024-04-03 00:58] MED LIST changes: -CLOZ25TA PO; +CLOZ25TA52 PO; -HALO10TA21 PO; +HALO5TAB23 PO; -LITH300T45 PO
[2024-04-03 02:15] LABS: ANION GAP 15 mmol/L (8-16); CALCIUM, TOTAL 9.5 mg/dL (8.8-10.5); CARBON DIOXIDE 16 mmol/L (22-29); CHLORIDE 106 mmol/L (98-107); CREATININE 0.63 mg/dL (0.60-1.30); GLOMERULAR FILTR. RATE CALC > 60 mL/min (>60); GLUCOSE,RANDOM 118 mg/dL (70-110); POTASSIUM 4.1 mmol/L (3.5-5.1); SODIUM SERUM 137 mmol/L (136-145); UREA NITROGEN, BLOOD 22 mg/dL (7-18)
[2024-04-03] MEDS: LevETIRAcetam 500 MG in DEXTROSE 5%-WATER 100 ML IV ONE (02:29)
[2024-04-03] MEDS: SODIUM CHLORIDE 0.9% 1,000 ML IV ONE (02:30)
[2024-04-03 02:33] LABS: BASOPHILS % (AUTO) 0.4 % (0.0-2.0); HEMATOCRIT 39.8 % (36-46); HEMOGLOBIN 13.2 g/dL (12.0-16.0); LYMPHOCYTES # (AUTO) 2.5 K/uL (1.0-4.8); LYMPHOCYTES % (AUTO) 28.2 % (22.0-44.0); MEAN CORPUSCULAR HEMOGLOBIN 30.3 pg (26.0-34.0); MEAN CORPUSCULAR HGB CONC 33.1 G/dL (31.0-37.0); MEAN CORPUSCULAR VOLUME 92 fL (80-100); MONOCYTES # (AUTO) 0.7 K/uL (0.1-1.0); MONOCYTES % (AUTO) 7.4 % (2.0-9.0); NEUTROPHILS # (AUTO) 5.4 K/uL (1.8-7.7); PLATELET COUNT (AUTO) 228 K/uL (150-450); RED BLOOD CELL COUNT(AUTO) 4.35 MIL/uL (4.00-5.20); RED CELL DISTRIBUTION WIDTH 12.8 % (11.5-14.5); WHITE BLOOD COUNT (AUTO) 8.9 K/uL (4.5-11.0)
[2024-04-03 05:33] VITALS: BP 116/73; PULSE 90; RESP 16; TEMP 97.9; O2SAT 98
== END 2024-04-03 07:23 | disposition home or self-care (01) ==
LOC: EMS 00:58
DX: G40.909 Epilepsy, unspecified, not intractable, without status epilepticus (principal); E78.00 Pure hypercholesterolemia, unspecified; E03.9 Hypothyroidism, unspecified; F20.9 Schizophrenia, unspecified; Z79.899 Other long term (current) drug therapy
CPT/HCPCS: 99284; 96365; 80048; 80178; 85025; 36415; J0712; J7060; J7030